=== PATIENT | female | born 1945 | race Caucasian/White ===

== ENCOUNTER 2019-08-07 06:00 | Outpatient (RCR) | payer MEDICARE, OTHER, SELFPAY | END 2019-08-25 23:59 | disposition home or self-care (01) | LOC: TOT 06:00 | PROVIDERS: Referring Provider Nurse Practitioner Family; Visit Provider Nurse Practitioner Family | DX: M79.641 Pain in right hand (principal); I10 Essential (primary) hypertension; E55.9 Vitamin D deficiency, unspecified; E78.5 Hyperlipidemia, unspecified; Z12.31 Encounter for screening mammogram for malignant neoplasm of breast; M81.0 Age-related osteoporosis without current pathological fracture; Z23 Encounter for immunization; F41.9 Anxiety disorder, unspecified; Z78.9 Other specified health status; M54.5 Low back pain | CPT/HCPCS: 80053; 80061; 82306; 85025; 97110; 97166; 97530 ==

== ENCOUNTER 2019-08-26 06:00 | Outpatient (RCR) | payer MEDICARE, OTHER, SELFPAY | END 2019-09-25 23:59 | disposition home or self-care (01) | LOC: TOT 06:00 | PROVIDERS: Referring Provider Nurse Practitioner Family; Visit Provider Nurse Practitioner Family | DX: M79.641 Pain in right hand (principal) | CPT/HCPCS: 97112; 97140; 97530 ==

== ENCOUNTER → 2020-02-28 09:02 | Outpatient (BNVA) | payer MEDICARE, OTHER, SELFPAY | PROVIDERS: Visit Provider Family Medicine | DX: I10 Essential (primary) hypertension (principal); E55.9 Vitamin D deficiency, unspecified | CPT/HCPCS: 80053; 80061; 82306; 84443; 85025 ==

== ENCOUNTER → 2021-01-19 11:51 | Outpatient (BNVA) | payer MEDICARE, OTHER, SELFPAY | PROVIDERS: Visit Provider Family Medicine | DX: E55.9 Vitamin D deficiency, unspecified (principal); E78.5 Hyperlipidemia, unspecified; I10 Essential (primary) hypertension; M81.0 Age-related osteoporosis without current pathological fracture; L02.91 Cutaneous abscess, unspecified; F41.9 Anxiety disorder, unspecified; J44.9 Chronic obstructive pulmonary disease, unspecified; Z12.31 Encounter for screening mammogram for malignant neoplasm of breast | CPT/HCPCS: 80053; 80061; 82306; 84443; 85025 ==

== ENCOUNTER 2021-07-05 09:39 | Inpatient (IN) | payer MEDICARE, OTHER, SELFPAY ==
[2021-07-05] VITALS (13 sets, daily range): BP systolic 128–171; BP diastolic 68–90; PULSE 83–113; RESP 16–32; TEMP 36.5–37.2; O2SAT 83–95; BMI 24.2
--- NOTE | 2021-07-05 09:45 | W.ED.SOB ---
HPI - SOB/Dyspnea General: Chief Complaint: Shortness of Breath/Dyspnea Stated Complaint: DIFF BREATHING Time Seen by Provider: 07/05/21 09:44 History of Present Illness: HPI Narrative: Ms. Shultz is a 76-year-old lady with history of COPD not on baseline oxygen who presents to the emergency department due to shortness of breath and generalized symptoms. Symptoms were gradual in onset approximately 1 week ago, she first noted sore throat which resolved however she subsequently developed generalized aches, congestion, chills and sweats, shortness of breath, and cough. She has associated chest discomfort which she attributes to coughing. This is tightness across her chest. Overall the course of symptoms has been worsening. Intensity is moderate to severe. No other specific changes in health, exacerbating, or alleviating factors identified. MD elicited complaint: shortness of breath Pertinent past history: COPD Onset (ago): week(s) Timing: progressively worsening Severity: severe Exacerbating factors: exertion and coughing Relieving factors: nothing Known history of: COPD Associated symptoms: Reports chest pain, cough and fever(s) Treatment prior to arrival: oxygen Review of Systems General: Reports: 10 or more systems reviewed and unremarkable except in HPI and below Const: Reports: fever(s) Card: Reports: chest pain PFSH ED PFSH: Medical History (Updated 07/08/21 @ 00:01 by ) Anxiety Hyperlipidemia Hypertension Osteoporosis Statin intolerance Vitamin D deficiency Surgical History History of bilateral cataract extraction (~2013) History of total left hip replacement (~2011) Family History Brother Heart disease Mother Heart disease Social History Smoking and tobacco status: current every day smoker cigarettes Packs smoked per day: 1 Years cigarettes smoked: 59 Alcohol intake: current Alcohol intake frequency: 0-2 Drinks per Day Caregiver/support person: Yes Lives independently: Yes Household members: friend(s) Housing: House Marital status: / Current occupational status: retired Current gender identity: Female Physical Exam Const: COMMON NORMALS: alert GENERAL APPEARANCE: cooperative, well developed and ill appearing (midlyl) HENMT: COMMON NORMALS: normocephalic and atraumatic HEAD & SCALP: normocephalic and atraumatic MOUTH: moist mucous membranes not abnormal THROAT: posterior oropharynx normal Eye: COMMON NORMALS: conjunctivae normal CONJUNCTIVA: Yes conjunctivae normal SCLERA: sclerae normal Neck/C-Spine: COMMON NORMALS: supple GENERAL: Yes trachea midline Resp: EFFORT & INSPECTION: Yes tachypneic and Yes uses accessory muscles AUSCULTATION: diminished lung sounds Cardio: COMMON NORMALS: regular rate and regular rhythm RATE: regular rate RHYTHM: regular rhythm GI: COMMON NORMALS: Soft to palpation PALPATION: Yes Soft to palpation and No Tenderness to palpation present (GI) PERCUSSION: normal to percussion Extremity: GENERAL: Yes normal exam except as noted and No edema Neuro: COMMON NORMALS: moves all extremities SENSORIUM/ORIENTATION: Yes alert and No Orientation impaired Psych: COMMON NORMALS: mental status grossly normal and Normal thought process present THOUGHT PROCESS: Normal thought process present Course ED course: - Patient was seen and evaluated by me at bedside - Patient placed on cardiac monitors, IV access obtained - Initial evaluation notable for increased work of breathing and new oxygen requirement -Symptom treatment ordered - Labs notable for Leukocytosis. Metabolic panel with evidence of mild dehydration. CRP elevated. - Imaging notable for right lower lobe pneumonia. COPD. - Upon serial reexamination after treatment the patient was mildly improved though still with increased work of breathing and supplemental oxygen requirement. - Based on patient history, evaluation, labs, and imaging as interpreted the most likely cause of the patient's condition is pneumonia with COPD exacerbation - The results of ED evaluation were discussed with the patient including plan for admission due to requirement for level of care not available if discharged to prevent significant worsening/deterioration. - Hospitalist service contacted and agreed to admit the patient. - Patient was admitted without further deterioration or significant events. Note: Click bubbles or prepopulated maynard in note writing are used for assistance with data collection and billing and are inherently more limited than narrative and other text portions of this note. Please use narrative for additional clinical history and defer to narrative/free test for any case of contradictory information. If information appears in only free text or click bubble it should be considered present or absent as reported. Please contact note freelance copywriter for clarifications of clinical information or contradictory information. MDM is a brief summary, contradictory or erroneous seeming information should be clarified and full note should be referred to in cases of contradiction or lack of clarity. Vital Signs: Vital signs: Vital Signs Temperature 97.6 F 07/07/21 14:53 Pulse Rate 68 07/07/21 14:53 Respiratory Rate 18 07/07/21 14:53 Blood Pressure 152/78 07/07/21 14:53 Pulse Oximetry 92 07/07/21 14:53 MDM - SOB/Dyspnea MDM Narrative: Medical decision making narrative: Ms. Shultz is a 76-year-old lady with history of COPD presenting with increased shortness of breath. Most likely has pneumonia with acute exacerbation of COPD and pneumonia with new oxygen requirement. Admitted for definitive management as patient was hypoxemic with respiratory distress on room air with increased work of breathing despite supplemental oxygen. Medical Records: Attestation: I reviewed the patient's medical records. Lab Data: Attestation: I reviewed the patient's lab results. Labs: Lab Results 07/05/21 07/05/21 07/05/21 10:18 10:30 10:30 WBC 11.3 10^3/uL H 10 ^3/uL (4.0-10.0) RBC 4.20 10^6/uL 10^6 /uL (4.1-5.3) Hgb 13.8 g/dL g/dL (11.5-15.3) Hct 41.0 % % (37.0-47.0) MCV 97.6 fl fl (81-99) MCH 32.9 pg pg (28.0-34.0) MCHC 33.7 g/dL g/dL (30.0-36.0) RDW 12.2 % % (12.1-15.1) Plt Count 304 10^3/cmm 10^3 /cmm (130-400) MPV 10.0 fL fL (7.4-10.4) Neut % (Auto) 71.4 % % Lymph % (Auto) 11.7 % % [place] % (Auto) 14.7 % % Eos % (Auto) 0.3 % % Baso % (Auto) 0.9 % % Neut # (Auto) 8.10 10^3/uL H 10 ^3/uL (1.8-7.7) Lymph # (Auto) 1.3 10^3/uL 10^3/ uL (0.8-4.8) [place] # (Auto) 1.7 10^3/uL H 10^ 3/uL (0.2-0.9) Eos # (Auto) 0.0 10^3/uL 10^3/ uL (0.0-0.8) Baso # (Auto) 0.1 10^3/uL 10^3/ uL (0.0-0.1) Nucleated RBC % (a uto) 0 % % Nucleated RBCs # 0.0 /100WBC /100W BC Specimen Type Arterial Sample Site Brachial, right ABG pH 7.45 (7.35-7.45) ABG pCO2 43.2 mmHg mmHg (35-45) ABG pO2 65.1 mmHg L mmHg (80.0-100.0) ABG HCO3 29.8 mmol/L H mmo l/L (22-26) ABG Base Excess 5.1 mmol/L H mmol /L (-2.0-2.0) Sebastian Test N/a Hematocrit 42.4 % % (37-47) O2 Delivery Device Nc O2 Liters/Min 4.0 % % FiO2 36.0 % % Supervisor In Circuit Testing ID Amh Sodium 135 mmol/L L mmol /L (136-145) Potassium 3.6 mmol/L mmol/L (3.5-5.1) Chloride 94 mmol/L L mmol/ L (98-107) Carbon Dioxide 24 mmol/L mmol/L (22-29) Anion Gap 20.6 H (5-19) BUN 7 mg/dL L mg/dL (8-23) Creatinine 0.4 mg/dL L mg/dL (0.5-0.9) GFR Calculation Not Reportable Glucose 105 mg/dL mg/dL (65-115) Calculated Osmolal ity 278 mOsm/kg L mOs m/kg (285-295) Calcium 9.6 mg/dL mg/dL (8.5-10.5) Total Bilirubin 0.4 mg/dL mg/dL (0.15-1.2) AST 17 U/L U/L (0-32) ALT 14 U/L U/L (0-33) Alkaline Phosphata se 92 IU/L IU/L (35-105) Troponin T Baselin e Troponin T 120 Min [place] Troponin T Troponin T Hi Sens 6Hr Troponin T Hi Sens 6Hr [place] C-Reactive Protein 338.2 mg/L H mg/L (0.0-4.9) NT-Pro-B Natriuret Pep 546 pg/mL H pg/mL (0-450) Total Protein 7.0 g/dL g/dL (6.6-8.7) Albumin 3.7 g/dL g/dL (3.5-5.2) Globulin 3.3 g/dL g/dL (1.3-4.6) Procalcitonin 0.10 ng/mL ng/mL (0-0.5) Coronavirus 229E ( PCR) SARS-CoV-2 (PCR) 07/05/21 07/05/21 07/05/21 10:30 10:30 13:00 WBC RBC Hgb Hct MCV MCH MCHC RDW Plt Count MPV Neut % (Auto) Lymph % (Auto) [place] % (Auto) Eos % (Auto) Baso % (Auto) Neut # (Auto) Lymph # (Auto) [place] # (Auto) Eos # (Auto) Baso # (Auto) Nucleated RBC % (a uto) Nucleated RBCs # Specimen Type Sample Site ABG pH ABG pCO2 ABG pO2 ABG HCO3 ABG Base Excess Sebastian Test Hematocrit O2 Delivery Device O2 Liters/Min FiO2 Supervisor In Circuit Testing ID Sodium Potassium Chloride Carbon Dioxide Anion Gap BUN Creatinine GFR Calculation Glucose Calculated Osmolal ity Calcium Total Bilirubin AST ALT Alkaline Phosphata se Troponin T Baselin e 11 ng/L H ng/L (0-10) Troponin T 120 Min [place] 10.94 ng/L H ng/L (0-10) Delta Troponin T -0.06 ABS# L ABS# (0-10) Troponin T Hi Sens 6Hr Troponin T Hi Sens 6Hr Delta C-Reactive Protein NT-Pro-B Natriuret Pep Total Protein Albumin Globulin Procalcitonin Coronavirus 229E ( PCR) Not detected (NOT DETECT) SARS-CoV-2 (PCR) Not detected (NOT DETECT) 07/05/21 07/06/21 07/06/21 17:00 04:00 04:00 WBC 11.4 10^3/uL H 10 ^3/uL (4.0-10.0) RBC 3.78 10^6/uL L 10 ^6/uL (4.1-5.3) Hgb 12.3 g/dL g/dL (11.5-15.3) Hct 37.1 % % (37.0-47.0) MCV 98.1 fl fl (81-99) MCH 32.5 pg pg (28.0-34.0) MCHC 33.2 g/dL g/dL (30.0-36.0) RDW 12.2 % % (12.1-15.1) Plt Count 288 10^3/cmm 10^3 /cmm (130-400) MPV 10.5 fL H fL (7.4-10.4) Neut % (Auto) 82.9 % % Lymph % (Auto) 7.4 % % [place] % (Auto) 5.9 % % Eos % (Auto) 0.0 % % Baso % (Auto) 0.6 % % Neut # (Auto) 9.41 10^3/uL H 10 ^3/uL (1.8-7.7) Lymph # (Auto) 0.8 10^3/uL 10^3/ uL (0.8-4.8) [place] # (Auto) 0.7 10^3/uL 10^3/ uL (0.2-0.9) Eos # (Auto) 0.0 10^3/uL 10^3/ uL (0.0-0.8) Baso # (Auto) 0.1 10^3/uL 10^3/ uL (0.0-0.1) Nucleated RBC % (a uto) 0 % % Nucleated RBCs # 0.0 /100WBC /100W BC Specimen Type Sample Site ABG pH ABG pCO2 ABG pO2 ABG HCO3 ABG Base Excess Sebastian Test Hematocrit O2 Delivery Device O2 Liters/Min FiO2 Supervisor In Circuit Testing ID Sodium 138 mmol/L mmol/L (136-145) Potassium 3.4 mmol/L L mmol /L (3.5-5.1) Chloride 101 mmol/L mmol/L (98-107) Carbon Dioxide 25 mmol/L mmol/L (22-29) Anion Gap 15.4 (5-19) BUN 6 mg/dL L mg/dL (8-23) Creatinine 0.3 mg/dL L mg/dL (0.5-0.9) GFR Calculation Not Reportable Glucose 174 mg/dL H mg/dL (65-115) Calculated Osmolal ity 288 mOsm/kg mOsm/ kg (285-295) Calcium 9.3 mg/dL mg/dL (8.5-10.5) Total Bilirubin AST ALT Alkaline Phosphata se Troponin T Baselin e Troponin T 120 Min [place] Troponin T Troponin T Hi Sens 6Hr 10.07 ng/L H ng/L (0-10) Troponin T Hi Sens 6Hr [place] -0.93 ng/L L ng/L (0-12) C-Reactive Protein NT-Pro-B Natriuret Pep Total Protein Albumin Globulin Procalcitonin Coronavirus 229E ( PCR) SARS-CoV-2 (PCR) EKG Data^: EKG 1: Attestation: I personally reviewed and interpreted this EKG as follows: EKG Interpretation Date: 07/05/21 EKG interpretation time: 10:20 Interpretation: Twelve-lead EKG shows a regular rhythm at a rate of 98. [place] interval 132, QRS duration 130, QTc 419. Normal axis. Interpretation: Sinus rhythm. Right bundle branch block. EKG 2: Attestation: I personally reviewed and interpreted this EKG as follows: EKG Interpretation Date: 07/05/21 EKG interpretation time: 14:15 Interpretation: Twelve-lead EKG shows a regular rhythm at a rate of 95. NJ interval 135, QRS duration 140, QTc 427. Normal axis. Interpretation: Sinus rhythm. Right bundle branch block. Discharge Plan Discharge Patient Disposition: Placed in Observation Admit Provider: Cordell Patterson Clinical Impression: Acute exacerbation of chronic obstructive airways disease, Hypoxemia, Pneumonia Discharge Diet: Cardiac Discharge Activity: Resume usual activity Coding Level of Care Code ED Site Foreman for Chg Fwd Exam Comprehensive
--- NOTE | 2021-07-05 09:47 | PC.NURSE ---
PT PLACED ON 4 L VIA NC SPO2 IS 92%.
--- NOTE | 2021-07-05 09:55 | ECG_ITS ---
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 Measurements Intervals [place] Rate: 98 P: 68 [place]: 132 QRS: 85 QRSD: 130 T: 42 QT: 364 QTc: 465 Interpretive Statements SINUS RHYTHM RIGHT BUNDLE BRANCH BLOCK [120+ ms QRS DURATION, UPRIGHT V1, 40+ ms S IN I/aVL/V4/V5/V6] No previous ECG available for comparison Electronically Signed On 07-07-2021 5:08:07 PLANNING COORDINATOR by Mirtha Johnson M.D. [id number]
--- NOTE | 2021-07-05 09:55 | XRR_ITS ---
PROCEDURE INFORMATION: Exam: XR Chest Exam date and time: 07/05/2021 9:55 AM Age: 76 years old Clinical indication: Cough and shortness of breath; Patient HX: Cough and SOB TECHNIQUE: Imaging protocol: XR of the chest. Views: 1 view. COMPARISON: No relevant prior studies available. FINDINGS: Lungs: The lungs are somewhat hyperinflated with increased interstitial markings, likely representing COPD. There is a patchy airspace opacity in the right lung base, concerning for pneumonia. Pleural spaces: Unremarkable. No pleural effusion. No pneumothorax. Heart/Mediastinum: Unremarkable. No cardiomegaly. Bones/joints: Degenerative changes of the spine and shoulder joints noted. XR/XR chest 1V portable [id number] IMPRESSION: 1. Imaging findings of right lower lobe pneumonia. 2. COPD changes.
[2021-07-05] MEDS: ipratropium-albuterol 3 mL Neb INHALATION ×2 (10:10→21:15)
[2021-07-05] MEDS: sodium chloride 0.9% 500 ML IV (10:22)
[2021-07-05 10:29] LABS: ABG PCO2 43.2 mmHg (35-45); ABG PH Result 7.45 (7.35-7.45); Arterial Blood Gas Hematocrit 42.4 % (37-47); Base Excess ABG 5.1 mmol/L (-2.0-2.0); Blood Gas Operator Identificat AMH; Blood Gas Sample Site Brachial, right; Blood Gas Sample Type Arterial; HCO3 ABG 29.8 mmol/L (22-26); Oxygen Device NC; PO2 ABG 65.1 mmHg (80.0-100.0)
[2021-07-05 10:50] LABS: Basophils # 0.1 10^3/uL (0.0-0.1); Basophils % 0.9 %; Eosinophils % 0.3 %; Hemoglobin 13.8 g/dL (11.5-15.3); Lymphocytes # 1.3 10^3/uL (0.8-4.8); Lymphocytes % 11.7 %; Mean Corpuscular HGB Conc 33.7 g/dL (30.0-36.0); Mean Corpuscular Hemoglobin 32.9 pg (28.0-34.0); Mean Corpuscular Volume 97.6 fl (81-99); Monocytes # 1.7 10^3/uL (0.2-0.9); Monocytes % 14.7 %; Neutrophils % 71.4 %; Nucleated Red Blood Cells % 0 %; Platelet Count 304 10^3/cmm (130-400); Red Cell Distribution Width 12.2 % (12.1-15.1); White Blood Count 11.3 10^3/uL (4.0-10.0)
[2021-07-05 11:06] LABS: Troponin(5th) Baseline 11 ng/L (0-10)
[2021-07-05 11:11] LABS: NT Pro B Type Natriuretic Pept 546 pg/mL (0-450)
[2021-07-05 11:22] LABS: Alanine Aminotransferase 14 U/L (0-33); Albumin Level 3.7 g/dL (3.5-5.2); Alkaline Phosphatase 92 IU/L (35-105); Anion Gap 20.6 (5-19); Aspartate Amino Transferase 17 U/L (0-32); Blood Urea Nitrogen 7 mg/dL (8-23); Calcium 9.6 mg/dL (8.5-10.5); Carbon Dioxide 24 mmol/L (22-29); Chloride 94 mmol/L (98-107); Globulin 3.3 g/dL (1.3-4.6); Glucose 105 mg/dL (65-115); Osmolality Calculated 278 mOsm/kg (285-295); Potassium 3.6 mmol/L (3.5-5.1); Sodium 135 mmol/L (136-145); Total Bilirubin 0.4 mg/dL (0.15-1.2)
[2021-07-05 11:34] LABS: C Reactive Protein 338.2 mg/L (0.0-4.9)
--- NOTE | 2021-07-05 11:55 | ECG_ITS ---
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 Measurements Intervals [place] Rate: 95 P: 56 [place]: 135 QRS: 83 QRSD: 140 T: 43 QT: 374 QTc: 472 Interpretive Statements SINUS RHYTHM WITH SINUS ARRHYTHMIA RIGHT BUNDLE BRANCH BLOCK [120+ ms QRS DURATION, UPRIGHT V1, 40+ ms S IN I/aVL/V4/V5/V6] Compared to ECG 07/05/2021 10:16:18 No significant changes Electronically Signed On 07-07-2021 5:21:00 LANDING MAN by Mirtha Johnson M.D. [id number]
[2021-07-05 12:35] LABS: Adenovirus Not Detected (NOT DETECT); Chlamydia Pneumoniae Not Detected (NOT DETECT); Coronavirus 229E,HKU1,NL63,OC4 Not Detected (NOT DETECT); Human Metapneumovirus Not Detected (NOT DETECT); Human Rhinovirus/Enterovirus Not Detected (NOT DETECT); Influenza A Not Detected (NOT DETECT); Influenza A H1 Not Detected (NOT DETECT); Influenza A H1-2009 Not Detected (NOT DETECT); Influenza A H3 Not Detected (NOT DETECT); Influenza B Not Detected (NOT DETECT); Mycoplasma Pneumoniae Not Detected (NOT DETECT); Parainfluenza Virus Type 1 Not Detected (NOT DETECT); Parainfluenza Virus Type 2 Not Detected (NOT DETECT); Parainfluenza Virus Type 3 Not Detected (NOT DETECT); Parainfluenza Virus Type 4 Not Detected (NOT DETECT); Respiratory Syncytial Virus A Not Detected (NOT DETECT); Respiratory Syncytial Virus B Not Detected (NOT DETECT); SARS-COV-2 Not Detected (NOT DETECT)
[2021-07-05 13:31] LABS: Troponin 5 2HR 10.94 ng/L (0-10)
[2021-07-05 13:32] LABS: Troponin 5 2HR Delta -0.06 ABS# (0-10)
[2021-07-05] MEDS: cefTRIAXone 1,000 MG in sodium chloride 0.9% (plus) 50 ML 100 MG IV (13:48)
[2021-07-05] MEDS: doxycycline 100 MG in sodium chloride 0.9% (plus) 100 ML IV (13:49)
--- NOTE | 2021-07-05 15:02 | P.HP_ITS ---
Providers/Chief Complaint Chief Complaint: DIFF BREATHING History of Present Illness Addie Shultz is a 76 year old female with past medical history of hypertension , COPD not on home oxygen , came in with chief complaint of worsening shortness of breath, cough with productive yellow sputum, generalized body pain, fatigue, poor appetite, feeling of hot and cold sensations, going on for last 1 week and has progressively worsened. She denies any fever, chest pain, palpitation , runny nose , facial pain , headache ,nausea, vomiting, abdominal pain, urinary complaints. Patient is vaccinated and boosted for Covid as well as influenza. Upon arrival in the ER she was worked up for above mentioned complaint: Pertinent imaging studies: XR chest: Suggestive of right lower lobe infiltrates EKG: Sinus rhythm with right bundle branch block. Pertinent labs: WBC 11.3, H&H:13.8/41, platelet count:304, serum sodium 135 serum potassium 3.6, BUN serum creatinine:7/0.4, Troponin trend without significant delta. proBNP is 546, CRP 338.2 Covid -19 PCR negative In the ER: Patient received nebs as well as Solu-Medrol IV, she was also given 1 dose of antibiotics. Currently she is requiring 4 Ls of oxygen. Review of Systems Const: Denies: fever(s) Card: Denies: palpitations, edema or swelling of feet/ankles Resp: Denies: pain on inspiration GI: Denies: abdominal pain, nausea, vomiting, diarrhea or constipation : Denies: flank pain Musc: Denies: extremity pain or extremity swelling Neuro: Denies: headache(s), difficulty walking or confusion Medications/Allergies Home Medications Medication Instructions Recorded Confirmed Last Taken Type aspirin 81 mg tablet,delayed 81 mg PO DAILY 08/01/19 07/05/21 06/28/21 History release albuterol sulfate 90 mcg/actuation 2 puff INHALATION Q6H PRN #18 gm 01/19/21 07/05/21 Unknown Rx aerosol inhaler atorvastatin 10 mg tablet 10 mg PO DAILY #90 tab 01/19/21 07/05/21 06/28/21 Rx cholecalciferol (vitamin D3) 125 5,000 unit PO DAILY #30 cap 01/19/21 07/05/21 06/28/21 Rx mcg (5,000 unit) capsule citalopram 20 mg tablet 20 mg PO DAILY #90 tab 01/19/21 07/05/21 06/28/21 Rx cyclobenzaprine 10 mg tablet 10 mg PO BID PRN #180 tab 01/19/21 07/05/21 Unknown Rx fluticasone fur. 100 mcg-umeclid See Rx Instructions .ROUTE 06/10/21 07/05/21 Unknown Rx 62.5 mcg-vilant 25 mcg .COMPLEX #60 ea inhalat.powder lisinopril 20 See Rx Instructions .ROUTE 06/10/21 07/05/21 06/28/21 Rx mg-hydrochlorothiazide 12.5 mg .COMPLEX #30 tab tablet amlodipine 5 mg PO BEDTIME 07/05/21 07/05/21 06/28/21 History Allergies Allergy/AdvReac Type Severity Reaction Status Date / Time codeine Allergy Mild ADR-Nausea Verified 01/19/21 10:42 Sulfa (Sulfonamide Allergy Mild ADR-Nausea Verified 01/19/21 10:42 Antibiotics) PFSH Acute PFSH: Medical History (Updated 07/05/21 @ 13:25 by Darryl Grace MD) Anxiety Hyperlipidemia Hypertension Osteoporosis Statin intolerance Vitamin D deficiency Surgical History History of bilateral cataract extraction (~2013) History of total left hip replacement (~2011) Family History Brother Heart disease Mother Heart disease Social History Smoking and tobacco status: current every day smoker cigarettes Packs smoked per day: 1 Years cigarettes smoked: 59 Alcohol intake: current Alcohol intake frequency: 0-2 Drinks per Day Caregiver/support person: Yes Lives independently: Yes Household members: friend(s) Housing: House Marital status: / Current occupational status: retired Current gender identity: Female Vitals/I&O/Wt Last Vital Signs Temp 97.7 F 07/05/21 14:00 Pulse 107 H 07/05/21 13:36 Resp 28 H 07/05/21 13:36 BP 133/68 07/05/21 13:36 Pulse Ox 93 07/05/21 13:36 07/05/21 07/05/21 07/05/21 06:59 14:59 22:59 Intake Total 500 / 500 Balance 500 / 500 Weight last 48 hrs Weight 68.039 kg Physical Exam Const: COMMON NORMALS: patient oriented x3 HENMT: COMMON NORMALS: normocephalic and atraumatic HEAD & SCALP: normocephalic and atraumatic Resp: OTHER: B/l Dimished Air entry, Minimal wheezing Cardio: COMMON NORMALS: regular rate, regular rhythm, S1 normal heart sound present, S2 normal heart sound present, No gallops present (Cardio), No murmurs present (Cardio), No rub (Cardio) and Peripheral pulses 2+ throughout RATE: regular rate RHYTHM: regular rhythm HEART SOUNDS: S1 normal heart sound present and S2 normal heart sound present PERIPHERAL PULSES: Peripheral pulses 2+ throughout GI: COMMON NORMALS: Normal to inspection, nondistended, normoactive bowel sounds present, Soft to palpation, non-tender, No hepatosplenomegaly present and no masses AUSCULTATION: Yes normoactive bowel sounds PALPATION: Yes Soft to palpation and Yes No hepatosplenomegaly present RECTAL EXAM: deferred Extremity: COMMON NORMALS: no clubbing, cyanosis or edema and no pedal edema Neuro: COMMON NORMALS: patient oriented x3 Data : 07/05/21 10:30 07/05/21 10:30 Micro: Microbiology 07/05/21 14:00 Blood Culture - Preliminary Blood SPECIMEN COLLECTED 07/05/21 10:30 Blood Culture - Preliminary Blood SPECIMEN COLLECTED A&P Assessment and plan (1) Acute exacerbation of chronic obstructive airways disease: Status: Acute (2) Pneumonia: Status: Acute (3) Hypoxemia: Status: Acute (4) Hypertension: Status: Acute Additional A&P Information 76 year old female with past medical history of hypertension , COPD not on home oxygen , came in with chief complaint of worsening shortness of breath, cough with productive yellow sputum, generalized body pain, fatigue, poor appetite, feeling of hot and cold sensations, going on for last 1 week and has progressively worsened. #COPD exacerbation: Likely secondary to pneumonia Duo nebs Solu-Medrol 60 twice daily Supplemental oxygen as needed Continue ceftriaxone and azithromycin Continue Trelegy inhaler Mucinex Incentive spirometer, flutter valve #Community-acquired pneumonia. Sputum culture Monitor x-ray chest Urine Legionella antigen Bacterial antigen panel Antibiotic as above #Hypertension: Continue home medications Code Status :Full Code DVT PPX: Lovenox 40 mg sc daily Attestations Medical Necessity Statement*: Patient is to be in hospital for management of COPD as well pneumonia. Time Spent in Patient Care: Greater than 35 minutes (>than 50% of time spent in counselling and/or direct pt care on unit) . Coding Level of Care Code Acute Fermentation Engineer for Chg Fwd Exam Detailed Diagnoses Acute exacerbation of chronic obstructive airways disease J44.1 Pneumonia J18.9 Hypoxemia R09.02 Hypertension I10
[2021-07-05] MEDS: enoxaparin 40 mg/0.4 mL Syringe SUBCUT (15:49)
[2021-07-05] MEDS: dextrose 5%-sod chloride 0.9% 1,000 ML 50 ML IV (15:49)
[2021-07-05] MEDS: azithromycin 500 MG in sodium chloride 0.9% 250 ML 250 MG IV (15:49)
[2021-07-05 17:39] LABS: Troponin 5 6HR 10.07 ng/L (0-10)
[2021-07-05 17:40] LABS: Troponin 5 6HR Delta -0.93 ng/L (0-12)
[2021-07-05] MEDS: guaiFENesin 600 mg Tablet 1200 MG PO (20:01)
[2021-07-05] MEDS: amlodipine 5 mg Tablet PO (20:01)
[2021-07-06] VITALS (17 sets, daily range): BP systolic 112–135; BP diastolic 64–74; PULSE 70–96; RESP 16–18; TEMP 36.4–36.8; O2SAT 92–96
[2021-07-06] MEDS: ipratropium-albuterol 3 mL Neb INHALATION ×4 (02:49→21:50)
[2021-07-06 04:50] LABS: Basophils # 0.1 10^3/uL (0.0-0.1); Basophils % 0.6 %; Hematocrit 37.1 % (37.0-47.0); Hemoglobin 12.3 g/dL (11.5-15.3); Lymphocytes # 0.8 10^3/uL (0.8-4.8); Lymphocytes % 7.4 %; Mean Corpuscular HGB Conc 33.2 g/dL (30.0-36.0); Mean Corpuscular Hemoglobin 32.5 pg (28.0-34.0); Mean Corpuscular Volume 98.1 fl (81-99); Mean Platelet Volume 10.5 fL (7.4-10.4); Monocytes # 0.7 10^3/uL (0.2-0.9); Monocytes % 5.9 %; Neutrophils # 9.41 10^3/uL (1.8-7.7); Neutrophils % 82.9 %; Nucleated Red Blood Cells % 0 %; Platelet Count 288 10^3/cmm (130-400); Red Blood Count 3.78 10^6/uL (4.1-5.3); Red Cell Distribution Width 12.2 % (12.1-15.1); White Blood Count 11.4 10^3/uL (4.0-10.0)
[2021-07-06 05:10] LABS: Anion Gap 15.4 (5-19); Blood Urea Nitrogen 6 mg/dL (8-23); Calcium 9.3 mg/dL (8.5-10.5); Carbon Dioxide 25 mmol/L (22-29); Chloride 101 mmol/L (98-107); Glucose 174 mg/dL (65-115); Osmolality Calculated 288 mOsm/kg (285-295); Potassium 3.4 mmol/L (3.5-5.1); Sodium 138 mmol/L (136-145)
[2021-07-06] MEDS: atorvastatin 40 mg Tablet 10 MG PO (09:23)
[2021-07-06] MEDS: cholecalciferol (vitamin D3) 5,000 unit Tablet 5000 UNIT PO (09:25)
[2021-07-06] MEDS: lisinopril 20 mg Tablet PO (09:25)
[2021-07-06] MEDS: aspirin 81 mg EC Tablet PO (09:25)
[2021-07-06] MEDS: citalopram 20 mg Tablet PO (09:25)
[2021-07-06] MEDS: guaiFENesin 600 mg Tablet 1200 MG PO ×2 (09:33→20:59)
[2021-07-06] MEDS: cefTRIAXone 1,000 MG in sodium chloride 0.9% (plus) 50 ML 100 MG IV (13:42)
--- NOTE | 2021-07-06 13:45 | PM.PN ---
Subjective Subjective: Interval history: Patient was seen this morning, she tells me that she is feeling a lot better, she continues to have wheezing, no lightheadedness, dizziness, still having a cough, reports that she quit smoking a few years ago, but picked up the habit again Vitals/I&O/Wt Last Vital Signs Temp 97.8 F 07/06/21 11:34 Pulse 95 07/06/21 11:34 Resp 18 07/06/21 11:34 BP 112/65 07/06/21 11:34 Pulse Ox 92 07/06/21 11:34 07/05/21 07/06/21 07/06/21 22:59 06:59 14:59 Intake Total 520 / 1020 120 / 120 Output Total 480 / 480 460 / 940 Balance 40 / 540 -460 / 80 120 / 120 Weight last 48 hrs Weight 68.039 kg Physical Exam Const: COMMON NORMALS: no acute distress and patient oriented x3 Resp: COMMON NORMALS: normal respiratory effort, No retractions and No use of accessory muscles AUSCULTATION: wheezes Cardio: COMMON NORMALS: regular rate, regular rhythm, S1 normal heart sound present and S2 normal heart sound present RATE: regular rate RHYTHM: regular rhythm HEART SOUNDS: S1 normal heart sound present and S2 normal heart sound present GI: COMMON NORMALS: Normal to inspection, nondistended, normoactive bowel sounds present, Soft to palpation and non-tender PALPATION: Yes Soft to palpation Extremity: COMMON NORMALS: no pedal edema Neuro: COMMON NORMALS: patient oriented x3 Psych: COMMON NORMALS: mental status grossly normal Data : 07/06/21 04:00 07/06/21 04:00 Micro: Microbiology 07/05/21 14:00 Blood Culture - Preliminary Blood SPECIMEN COLLECTED 07/05/21 10:30 Blood Culture - Preliminary Blood SPECIMEN COLLECTED A&P Assessment and plan (1) Acute exacerbation of chronic obstructive airways disease: Status: Acute (2) Pneumonia: Status: Acute (3) Hypoxemia: Status: Acute (4) Hypertension: Status: Acute Additional A&P Information 76 year old female with past medical history of hypertension , COPD not on home oxygen , came in with chief complaint of worsening shortness of breath, cough with productive yellow sputum, generalized body pain, fatigue, poor appetite, feeling of hot and cold sensations, going on for last 1 week and has progressively worsened. #COPD exacerbation: Likely secondary to pneumonia Duo nebs Solu-Medrol 60 twice daily Supplemental oxygen as needed Continue ceftriaxone and azithromycin Continue Trelegy inhaler Mucinex Incentive spirometer, flutter valve #Community-acquired pneumonia. 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
[2021-07-06] MEDS: enoxaparin 40 mg/0.4 mL Syringe SUBCUT (15:29)
[2021-07-06] MEDS: azithromycin 500 MG in sodium chloride 0.9% 250 ML 250 MG IV (15:30)
[2021-07-06] MEDS: amlodipine 5 mg Tablet PO (20:59)
[2021-07-07] VITALS (10 sets, daily range): BP systolic 127–152; BP diastolic 70–82; PULSE 68–95; RESP 16–18; TEMP 36.4–36.9; O2SAT 85–98
[2021-07-07] MEDS: ipratropium-albuterol 3 mL Neb INHALATION ×2 (02:38→09:42)
[2021-07-07 07:03] LABS: Basophils # 0.1 10^3/uL (0.0-0.1); Basophils % 0.6 %; Hematocrit 35.7 % (37.0-47.0); Hemoglobin 11.9 g/dL (11.5-15.3); Lymphocytes # 1.4 10^3/uL (0.8-4.8); Lymphocytes % 6.7 %; Mean Corpuscular HGB Conc 33.3 g/dL (30.0-36.0); Mean Corpuscular Hemoglobin 32.2 pg (28.0-34.0); Mean Corpuscular Volume 96.7 fl (81-99); Mean Platelet Volume 10.3 fL (7.4-10.4); Monocytes # 1.3 10^3/uL (0.2-0.9); Monocytes % 6.2 %; Neutrophils # 17.22 10^3/uL (1.8-7.7); Neutrophils % 81.6 %; Nucleated Red Blood Cells % 0 %; Platelet Count 322 10^3/cmm (130-400); Red Blood Count 3.69 10^6/uL (4.1-5.3); Red Cell Distribution Width 12.4 % (12.1-15.1); White Blood Count 21.1 10^3/uL (4.0-10.0)
[2021-07-07 07:16] LABS: Anion Gap 16.6 (5-19); Blood Urea Nitrogen 8 mg/dL (8-23); Calcium 9.3 mg/dL (8.5-10.5); Carbon Dioxide 24 mmol/L (22-29); Chloride 103 mmol/L (98-107); Glucose 125 mg/dL (65-115); Osmolality Calculated 290 mOsm/kg (285-295); Potassium 3.6 mmol/L (3.5-5.1); Sodium 140 mmol/L (136-145)
[2021-07-07] MEDS: atorvastatin 40 mg Tablet 10 MG PO (08:02)
[2021-07-07] MEDS: citalopram 20 mg Tablet PO (08:02)
[2021-07-07] MEDS: cholecalciferol (vitamin D3) 5,000 unit Tablet 5000 UNIT PO (08:02)
[2021-07-07] MEDS: lisinopril 20 mg Tablet PO (08:02)
[2021-07-07] MEDS: guaiFENesin 600 mg Tablet 1200 MG PO (08:03)
[2021-07-07] MEDS: aspirin 81 mg EC Tablet PO (08:03)
--- NOTE | 2021-07-07 12:03 | PM.DCS ---
Discharge Providers Date of Admission: 07/06/21 14:05 Date of Discharge: July 07, 2021 Attending Provider at Admission: Cordell Patterson MD Attending Provider at Discharge: Lakhwinder Jha MD Diagnoses at Discharge Discharge Diagnosis (1) Acute exacerbation of chronic obstructive airways disease: Status: Acute (2) Pneumonia: Status: Acute (3) Hypoxemia: Status: Acute (4) Hypertension: Status: Acute Reason for Visit Reason for Visit: DIFF BREATHING Hospital Course Hospital Course This is a 76-year-old female with a past medical history of hypertension, COPD not on home oxygen, smoker, who presents [facility] for worsening shortness of breath Patient was admitted to [facility] for shortness of breath secondary to COPD exacerbation and community-acquired pneumonia, received oxygen therapy, broad-spectrum antibiotic therapy, prednisone therapy, inhaler therapy, clinically monitored. Patient clinically improved, symptomatology improved, requiring 3 L on discharge. Discharged on a prednisone burst, doxycycline, albuterol, trilogy home inhaler, with follow-up with primary care and pulmonary as outpatient. Patient was advised to quit smoking. Physical Exam Const: COMMON NORMALS: no acute distress and patient oriented x3 Resp: COMMON NORMALS: normal respiratory effort, No retractions, No use of accessory muscles and clear to auscultation bilaterally AUSCULTATION: clear to auscultation bilaterally Cardio: COMMON NORMALS: regular rate, regular rhythm, S1 normal heart sound present and S2 normal heart sound present RATE: regular rate RHYTHM: regular rhythm HEART SOUNDS: S1 normal heart sound present and S2 normal heart sound present GI: COMMON NORMALS: Normal to inspection, nondistended, normoactive bowel sounds present, Soft to palpation and non-tender PALPATION: Yes Soft to palpation Extremity: COMMON NORMALS: no pedal edema Neuro: COMMON NORMALS: patient oriented x3 Psych: COMMON NORMALS: mental status grossly normal Discharge Data Data Completed and Pending: Completed Studies During Hospitalization Category Date Time Status XR chest 1V joellen ble [id number] Urgent Exams 07/05/21 09:55 Completed Pending at discharge Category Date Time Status Basic Metabolic P jose AM LABS Lab 07/08/21 04:00 Ordered Blood Culture Sta t Lab 07/05/21 14:00 Results Complete Blood Co unt w/Auto AM LABS Lab 07/08/21 04:00 Ordered Labs from last 24 hours 07/07/21 07/07/21 06:01 06:01 WBC 21.1 H RBC 3.69 L Hgb 11.9 Hct 35.7 L MCV 96.7 MCH 32.2 MCHC 33.3 RDW 12.4 Plt Count 322 MPV 10.3 Neut % (Auto) 81.6 Lymph % (Auto) 6.7 [place] % (Auto) 6.2 Eos % (Auto) 0.0 Baso % (Auto) 0.6 Neut # (Auto) 17.22 H Lymph # (Auto) 1.4 [place] # (Auto) 1.3 H Eos # (Auto) 0.0 Baso # (Auto) 0.1 Nucleated RBC % (a uto) 0 Nucleated RBCs # 0.0 Sodium 140 Potassium 3.6 Chloride 103 Carbon Dioxide 24 Anion Gap 16.6 BUN 8 Creatinine 0.3 L GFR Calculation Not Reportable Glucose 125 H Calculated Osmolal ity 290 Calcium 9.3 Vitals: Last Vital Signs Temp 97.6 F 07/07/21 11:37 Pulse 68 07/07/21 11:37 Resp 18 07/07/21 11:37 BP 152/78 07/07/21 11:37 Pulse Ox 92 07/07/21 11:37 Discharge Plan Discharge Patient Disposition: Home Condition: Stable Prescriptions: New doxycycline hyclate 100 mg tablet 100 mg PO BID 5 Days Qty: 10 RF: 0 prednisone 20 mg tablet 20 mg PO BID 5 Days Qty: 10 RF: 0 Continued aspirin 81 mg tablet,delayed release (DR/EC) 81 mg PO DAILY RF: 0 cholecalciferol (vitamin D3) [Dialyvite Vitamin D] 125 mcg (5,000 unit) capsule 5,000 unit PO DAILY Qty: 30 RF: 4 citalopram 20 mg tablet 20 mg PO DAILY Qty: 90 RF: 2 cyclobenzaprine 10 mg tablet 10 mg PO BID PRN (Reason: muscle spasm) Qty: 180 RF: 2 atorvastatin [Lipitor] 10 mg tablet 10 mg PO DAILY Qty: 90 RF: 2 Trelegy Ellipta 100-62.5-25 mcg blister with device See Rx Instructions .ROUTE .COMPLEX Qty: 60 RF: 0 lisinopril-hydrochlorothiazide 20-12.5 mg tablet See Rx Instructions .ROUTE .COMPLEX Qty: 30 RF: 0 amlodipine 5 mg tablet 5 mg PO BEDTIME RF: 0 Changed albuterol sulfate [Ventolin HFA] 90 mcg/actuation HFA aerosol inhaler 1 puff INHALATION Q6H PRN (Reason: shortness of breath or wheezing) Qty: 18 RF: 0 Discharge Orders: Discharge Order (Routine); Ordered 07/07/21 Ordered By: Lakhwinder Jha Referrals: DatarRobbin MD [Physician] - 7-10 days Discharge Diet: Cardiac Discharge Activity: Resume usual activity Patient Instructions: Opioid Safety Activity Restrictions/Additional Instructions: - Stop smoking -Please use inhalers as prescribed -Please use doxycycline and prednisone as prescribed -Please use oxygen as prescribed, do not smoke around oxygen tank Discharge Attestations Time Spent in Discharge Care*: less than 30 min Quality Metrics Clinical Quality Measures During this hospital stay, did patient experience: None Coding Level of Care Code Acute g [facility] note Diagnoses Acute exacerbation of chronic obstructive airways disease J44.1 Pneumonia J18.9 Hypoxemia R09.02 Hypertension I10
--- NOTE | 2021-07-07 14:52 | PC.NURSE ---
Discussed discharge instructions and medications. Patient verbalized understanding. Patient wheeled out in wheel chair to private vehicle.
== END 2021-07-07 14:55 | disposition home or self-care (01) | DRG 194 ==
LOC: ER 13:25 → MEDSURG 15:36
PROVIDERS: Admitting Provider Internal Medicine; Emergency Provider Emergency Medicine; Visit Provider Family Medicine
DX: J18.9 Pneumonia, unspecified organism (principal); J44.1 Chronic obstructive pulmonary disease with (acute) exacerbation; I10 Essential (primary) hypertension; R09.02 Hypoxemia; Z99.81 Dependence on supplemental oxygen; F17.210 Nicotine dependence, cigarettes, uncomplicated; I45.10 Unspecified right bundle-branch block; Z79.82 Long term (current) use of aspirin; E86.0 Dehydration; E55.9 Vitamin D deficiency, unspecified; E78.5 Hyperlipidemia, unspecified; F41.9 Anxiety disorder, unspecified
CPT/HCPCS: 36415; 36600; 71045; 80048; 80053; 82803; 83880; 84145; 84484; 85025; 86140; 87040; 87635; 93005; 94640; 96365; 96366; 96367; 96372; 96375; 99285; G0378; J0456; J0696; J1650; J2930; J3490; J7040; J7050

== ENCOUNTER → 2021-09-11 12:13 | Outpatient (BNVA) | payer MEDICARE, OTHER, SELFPAY | PROVIDERS: PCP Family Medicine; Visit Provider Internal Medicine Pulmonary Disease | DX: J44.9 Chronic obstructive pulmonary disease, unspecified (principal) | CPT/HCPCS: 87635 ==

== ENCOUNTER → 2021-09-23 08:35 | Outpatient (BNVA) | payer MEDICARE, OTHER, SELFPAY | PROVIDERS: PCP Family Medicine; Visit Provider Internal Medicine Pulmonary Disease | DX: J44.9 Chronic obstructive pulmonary disease, unspecified; J18.9 Pneumonia, unspecified organism; E78.5 Hyperlipidemia, unspecified; I10 Essential (primary) hypertension; Z87.891 Personal history of nicotine dependence | CPT/HCPCS: 87635; 99214 ==

== ENCOUNTER 2021-09-30 07:55 | Outpatient (CLI) | payer MEDICARE, OTHER, SELFPAY ==
--- NOTE | 2021-09-30 13:46 | PFTS_ITS ---
Date of Study:09/30/21 Date of Dictation: MECHANICS: Forced vital capacity (FVC) is normal. Forced expiratory volume in one second (FEV1) is reduced. FEV1/FVC is normal. FLOW VOLUME LOOP: Reduced lateral lung volumes with scooping. LUNG VOLUMES: Total lung capacity (TLC) is normal. Residual volume (RV) is normal. DIFFUSING CAPACITY FOR CARBON MONOXIDE: Mild reduced. INTERPRETATION: Postbronchodilator spirometry is likely suggestive of mild airflow obstruction. The FEV1 FVC ratio is preserved. There is scooping of the flow volume loop suggestive of small airways disease. Lung volumes are normal. Gas exchange (DLCO) is mildly reduced. MTDD
== END 2021-09-30 07:56 | disposition home or self-care (01) ==
LOC: RT 07:57
PROVIDERS: PCP Family Medicine; Visit Provider Internal Medicine Pulmonary Disease
DX: J44.9 Chronic obstructive pulmonary disease, unspecified (principal)
CPT/HCPCS: 94060; 94726; 94729; J7611

== ENCOUNTER → 2021-11-06 08:53 | Outpatient (BNVA) | payer MEDICARE, OTHER, SELFPAY | PROVIDERS: PCP Family Medicine; Visit Provider Internal Medicine Pulmonary Disease | DX: Z09 Encounter for follow-up examination after completed treatment for conditions other than malignant neoplasm (principal); J44.9 Chronic obstructive pulmonary disease, unspecified; J18.9 Pneumonia, unspecified organism; Z87.891 Personal history of nicotine dependence; E78.5 Hyperlipidemia, unspecified; I10 Essential (primary) hypertension | CPT/HCPCS: 99214 ==

== ENCOUNTER 2022-02-04 11:58 | Outpatient (CLI) | payer MEDICARE, OTHER, SELFPAY ==
--- NOTE | 2022-02-04 12:09 | CT_ITS ---
WS: [id number] LDCT LUNG CANCER SCREENING TECHNIQUE: Noncontrast CT of the chest with coronal and sagittal reformatted images. CLINICAL INFORMATION: PERSONAL HX OF NICOTINE DEPENDENCE COMPARISON: CT chest 10 13,006 DLP: 67.00 mGy.cm DIvol: Mean CTDIvol: 1.60 (mGy) All CT scans at [facility] use at least one of these dose optimization techniques: automat ed exposure control; mA and/or kV adjustment per patient size (includes targeted exams where dose is matched to clinical indication); or iterative reconstruction. FINDINGS: No suspicious pulmonary parenchymal opacities. No acute pulmonary infiltrates. No focal pne umonia or pleural fluid. Moderate thoracic kyphosis. No acute compression. Hypertrophic changes thoracic spine. Disc space mickie rowing in the mid and lower thoracic spine. Normal caliber thoracic aorta. Aortic calcification. Coronary calcification.Tiny esophageal hiatal he rnia. No axillary lymphadenopathy. CT/CT lung screening [id number] IMPRESSION: LUNG-RADS: 1-Negative FOLLOW UP: 12 Month: Continue annual screening with LDCT
== END 2022-02-04 11:59 | disposition home or self-care (01) ==
LOC: RAD 11:58
PROVIDERS: PCP Family Medicine; Visit Provider Internal Medicine Pulmonary Disease
DX: Z12.2 Encounter for screening for malignant neoplasm of respiratory organs (principal); Z87.891 Personal history of nicotine dependence
CPT/HCPCS: 71271

== ENCOUNTER → 2022-02-08 10:53 | Outpatient (BNVA) | payer MEDICARE, OTHER, SELFPAY | PROVIDERS: PCP Family Medicine; Visit Provider Internal Medicine Pulmonary Disease | DX: R06.02 Shortness of breath (principal); J44.9 Chronic obstructive pulmonary disease, unspecified; T78.40XA Allergy, unspecified, initial encounter; F17.210 Nicotine dependence, cigarettes, uncomplicated | CPT/HCPCS: 36415; 82785; 85025; 85651; 86003; 99214 ==

== ENCOUNTER → 2022-04-20 14:23 | Outpatient (BNVA) | payer MEDICARE, OTHER, SELFPAY | PROVIDERS: PCP Family Medicine; Visit Provider Family Medicine | DX: E55.9 Vitamin D deficiency, unspecified (principal); E78.5 Hyperlipidemia, unspecified; I10 Essential (primary) hypertension; Z23 Encounter for immunization; F41.9 Anxiety disorder, unspecified; B00.1 Herpesviral vesicular dermatitis | CPT/HCPCS: 85025 ==

== ENCOUNTER → 2022-04-21 15:20 | Outpatient (BNVA) | payer MEDICARE, OTHER, SELFPAY | PROVIDERS: PCP Family Medicine; Visit Provider Family Medicine | DX: E55.9 Vitamin D deficiency, unspecified (principal); E78.5 Hyperlipidemia, unspecified; I10 Essential (primary) hypertension; Z23 Encounter for immunization; F41.9 Anxiety disorder, unspecified; B00.1 Herpesviral vesicular dermatitis | CPT/HCPCS: 80053; 80061; 82306; 84443 ==

== ENCOUNTER → 2022-11-18 11:56 | Outpatient (BNVA) | payer MEDICARE, OTHER, SELFPAY | PROVIDERS: PCP Family Medicine; Visit Provider Family Medicine | DX: T14.8XXA Other injury of unspecified body region, initial encounter (principal); W57.XXXA Bitten or stung by nonvenomous insect and other nonvenomous arthropods, initial encounter | CPT/HCPCS: 86618; 86666; 86757 ==

== ENCOUNTER 2023-04-17 08:09 | Inpatient (IN) | payer MEDICARE, OTHER, SELFPAY ==
[2023-04-17] VITALS (10 sets, daily range): BP systolic 95–122; BP diastolic 51–76; PULSE 89–106; RESP 16–18; TEMP 36.5–37; O2SAT 92–100; BMI 23.7
--- NOTE | 2023-04-17 08:12 | ED_ITS ---
HPI - GI Bleed General: Chief complaint: Abdominal Pain Stated complaint: RECTAL BLEEDING Time Seen by Provider: 04/17/23 08:11 Source: patient Mode of arrival: ambulatory History of Present Illness: 78-year-old female presents emergency room complaining of rectal bleeding syncopal episode. She got up this morning to the bathroom she got lightheaded and dizzy she went to the bathroom passed some blood and then when she stood up she passed out she laid on the floor for an unknown length of time. She had fallen earlier this week as syncopal episodes complaining some pain across her sacrum she has been able to ambulate. She does take aspirin daily but no other anticoagulants. She is on its own antihypertensives. No previous history of GI bleed. She has a history of COPD and she is supposed to use 2 L of oxygen cadence nuously but only uses occasionally. MD complaint: gross hematochezia Onset (ago): hour(s) Relieving factors: none Exacerbating factors: none Associated symptoms: Reports abdominal pain; Denies chills, fever(s) or rash Review of Systems Const: Denies: fever(s) or chills Card: Denies: chest pain Resp: Denies: dyspnea GI: Reports: abdominal pain and hematochezia : Denies: dysuria, urinary frequency or urinary urgency Musc: Denies: neck pain or back pain Skin/Breast: Denies: rash PFSH ED PFSH: Medical History (Updated 04/17/23 @ 16:14 by William Dhillon DO) Anxiety Hyperlipidemia Hypertension Osteoporosis Statin intolerance Vitamin D deficiency Surgical History History of bilateral cataract extraction (~2013) History of total left hip replacement (~2011) Family History Brother Heart disease Mother Heart disease Social History Smoking and tobacco/nicotine status: current every day tobacco/nicotine user Quit status (tobacco/nicotine): has quit using Year quit tobacco: 2021 Former quit date comment: 1.5ppd x 60 year Hx Alcohol intake: current Alcohol intake frequency: 0-2 Drinks per Day Substance/Drug Use: never Caregiver/support person: Yes Lives independently: Yes Household members: friend(s) Housing: House Marital status: / Current occupational status: retired Current gender identity: Female Physical Exam Const: GENERAL APPEARANCE: cooperative and comfortable ORIENTATION/CONSCIOUSNESS: Yes awake, Yes oriented to person, Yes oriented to place and Yes oriented to time HENMT: COMMON NORMALS: normocephalic, atraumatic and hearing grossly normal bilaterally HEAD & SCALP: normocephalic and atraumatic Resp: COMMON NORMALS: normal respiratory effort, No retractions, No use of accessory muscles and clear to auscultation bilaterally AUSCULTATION: clear to auscultation bilaterally Cardio: COMMON NORMALS: regular rate, regular rhythm and No murmurs present (Cardio) RATE: regular rate RHYTHM: regular rhythm GI: COMMON NORMALS: No hepatosplenomegaly present AUSCULTATION: Yes normoactive bowel sounds PALPATION: Yes Tenderness to palpation present (GI) (diffuse), No Guarding due to palpation present (GI) and Yes No hepatospl enomegaly present Extremity: COMMON NORMALS: normal to inspection, capillary refill normal, no clubbing, cyanosis or edema, no calf tenderness and no pedal edema Neuro: SENSORIUM/ORIENTATION: Yes oriented to person, Yes oriented to place and Yes oriented to time Skin: COMMON NORMALS: no rashes or lesions noted GENERAL SKIN EXAM: no rashes or lesions noted Course Vital Signs: Vital signs: Vital Signs Temperature 97.8 F 04/17/23 14:31 Pulse Rate 89 04/17/23 14:31 Respiratory Rate 18 04/17/23 14:31 Blood Pressure 103/59 04/17/23 14:31 Pulse Oximetry 93 04/17/23 15:39 Oxygen Delivery Me thod Room Air 04/17/23 15:39 Oxygen Flow Rate 2 04/17/23 08:15 MDM - GI Bleed Medical Decision Making Rectal bleeding with colitis. Patient does have 1 episode of watery bloody stool in the ER. Colitis noted on CT. Will admit Flagyl and ciprofloxacin started. Significant leukocytosis as well. Mild hyponatremia. Observation discussed with hospitalist Medical Records I reviewed the patient's medical records. Lab Data I reviewed the patient's lab results. 04/17/23 08:47 04/17/23 08:47 Radiology Impressions Abdomen/Pelvis CT 04/17/23 08:40 IMPRESSION: Segmental colitis, infectious or inflammatory. Diverticulosis. Nonobstructing right nephrolithiasis. Laboratory Results WBC 19.99 10^3/uL (3.29-11.43) H 04/17/23 08:47 Corrected WBC Cancelled 04/17/23 08:19 RBC 5.00 10^6/uL (3.85-5.65) 04/17/23 08:47 Hgb 15.60 g/dL (11.27-16.99) 04/17/23 08:47 Hct 46.9 % (36-47) 04/17/23 08:47 MCV 93.8 fl (85-98) 04/17/23 08:47 MCH 31.2 pg (27-33) 04/17/23 08:47 MCHC 33.3 g/dL (30-55) 04/17/23 08:47 RDW 12.5 % (12.1-15.1) 04/17/23 08:47 Plt Count 319 10^3/cmm (157-399) 04/17/23 08:47 MPV 10.5 fL (7.4-10.4) H 04/17/23 08:47 Gran % Cancelled 04/17/23 08:19 Neut % (Auto) 85.2 % 04/17/23 08:47 Lymph % (Auto) 8.0 % 04/17/23 08:47 [place] % (Auto) 5.9 % 04/17/23 08:47 Eos % (Auto) 0.2 % 04/17/23 08:47 Baso % (Auto) 0.2 % 04/17/23 08:47 Neut # (Auto) 17.04 10^3/uL (1.8-7.7) H 04/17/23 08:47 Lymph # (Auto) 1.6 10^3/uL (0.8-4.8) 04/17/23 08:47 Grand # (Auto) 1.2 10^3/uL (0.2-0.9) H 04/17/23 08:47 Eos # (Auto) 0.0 10^3/uL (0.0-0.8) 04/17/23 08:47 Baso # (Auto) 0.0 10^3/uL (0.0-0.1) 04/17/23 08:47 Absolute Gran (auto) Cancelled 04/17/23 08:19 Nucleated RBC % (auto) 0 % 04/17/23 08:47 Nucleated RBCs # 0.0 /100WBC 04/17/23 08:47 Sodium 135 mmol/L (136-145) L 04/17/23 08:47 Potassium 4.0 mmol/L (3.5-5.1) 04/17/23 08:47 Chloride 98 mmol/L (98-107) 04/17/23 08:47 Carbon Dioxide 26 mmol/L (22-29) 04/17/23 08:47 Anion Gap 15.0 (5-19) 04/17/23 08:47 BUN 34 mg/dL (8-23) H 04/17/23 08:47 Creatinine 1.1 mg/dL (0.5-0.9) H 04/17/23 08:47 GFR Calculation Not Reportable 04/17/23 08:47 Glucose 139 mg/dL (65-115) H 04/17/23 08:47 Calculated Osmolality 290 mOsm/kg (285-295) 04/17/23 08:47 Calcium 10.1 mg/dL (8.5-10.5) 04/17/23 08:47 Total Bilirubin 0.3 mg/dL (0.15-1.2) 04/17/23 08:47 AST 17 U/L (0-32) 04/17/23 08:47 ALT 11 U/L (0-33) 04/17/23 08:47 Alkaline Phosphatase 76 U/L (35-105) 04/17/23 08:47 Creatine Kinase 24 U/L (26-192) L 04/17/23 08:47 Troponin T Baseline 17 ng/L (0-10) H 04/17/23 08:47 Troponin T 120 Minute 14.64 ng/L (0-10) H 04/17/23 10:10 Delta Troponin T -2.36 ABS# (0-10) L 04/17/23 10:10 Total Protein 6.5 g/dL (6.6-8.7) L 04/17/23 08:47 Albumin 4.0 g/dL (3.5-5.2) 04/17/23 08:47 Globulin 2.5 g/dL (1.3-4.6) 04/17/23 08:47 All radiology interpretation(s) finalized by discharge Discharge Plan Discharge Patient Disposition: Admitted As Inpatient Admit Provider: Pako Rios Clinical Impression: Hematochezia, Leukocytosis, Hyponatremia, Colitis Condition: Stable Coding Level of Care Code ED Conditioner Tumbler Operator for Reinier Dexter
--- NOTE | 2023-04-17 08:40 | CTR_ITS ---
PROCEDURE INFORMATION: Exam: CT Abdomen And Pelvis With Contrast Exam date and time: 04/17/2023 9:22 AM Age: 78 years old Clinical indication: Abdominal pain; Generalized; Prior surgery; Surgery date: 6+ months; Surgery type: Appy hysto; Additional info: Abd pain bright red blood in stool TECHNIQUE: Imaging protocol: Computed tomography of the abdomen and pelvis with contrast. Radiation optimization: All CT scans at this facility use at least one of these dose optimization techniques: automated exposure control; mA and/or kV adjustment per patient size (includes targeted exams where dose is matched to clinical indication); or iterative reconstruction. Contrast material: OMNI 350; Contrast volume: 100 ml; Contrast route: INTRAVENOUS (IV); REPORTING DATA: Count of CT and Cardiac NM exams in prior 12 months: This patient has received 0 known CTs and 0 known cardiac nuclear medicine studies in the 12 months prior to the current study. COMPARISON: CT lung screening [id number] 02/04/2022 12:41 PM RADIATION DOSE METRICS: Total DLP (mGy-cm): 475.07 FINDINGS: Liver: The liver is normal in size and contour. No enhancing lesion is identified. The portal vein is patent. Gallbladder and bile ducts: The gallbladder is partially distended. Pancreas: Normal. No ductal dilation. Spleen: Normal. No splenomegaly. Adrenal glands: Normal. No mass. Kidneys and ureters: The kidneys enhance symmetrically and there is no hydronephrosis. Near the lower pole the right kidney there is a 2 mm nonobstructing calculus. Stomach and bowel: There is segmental mural thickening of the colon extending from the proximal transverse through the descending segments paracolic inflammatory change. Extensive sigmoid diverticulosis is noted, scattered diverticular disease elsewhere in the colon is noted. Appendix: No evidence of appendicitis. Intraperitoneal space: There is trace free pelvic fluid on the right. Vasculature: The abdominal aorta is normal in course and caliber with moderate athero sclerotic calcification. Lymph nodes: Unremarkable. No enlarged lymph nodes. Urinary bladder: The urinary bladder is contracted. Reproductive: Unremarkable as visualized. Bones/joints: The patient is post bilateral total hip arthroplasty. Degenerative changes are noted in the bones. There is a levoconvex curvature of the lumbar spine. Soft tissues: Unremarkable. CT/CT abdomen pelvis w con* [id number] IMPRESSION: Segmental colitis, infectious or inflammatory. Diverticulosis. Nonobstructing right nephrolithiasis.
[2023-04-17 08:54] LABS: Basophils % 0.2 %; Eosinophils % 0.2 %; Hematocrit 46.9 % (36-47); Lymphocytes # 1.6 10^3/uL (0.8-4.8); Mean Corpuscular HGB Conc 33.3 g/dL (30-55); Mean Corpuscular Hemoglobin 31.2 pg (27-33); Mean Corpuscular Volume 93.8 fl (85-98); Mean Platelet Volume 10.5 fL (7.4-10.4); Monocytes # 1.2 10^3/uL (0.2-0.9); Monocytes % 5.9 %; Neutrophils # 17.04 10^3/uL (1.8-7.7); Neutrophils % 85.2 %; Nucleated Red Blood Cells % 0 %; Platelet Count 319 10^3/cmm (157-399); Red Cell Distribution Width 12.5 % (12.1-15.1); White Blood Count 19.99 10^3/uL (3.29-11.43)
[2023-04-17 09:11] LABS: Alanine Aminotransferase 11 U/L (0-33); Alkaline Phosphatase 76 U/L (35-105); Aspartate Amino Transferase 17 U/L (0-32); Blood Urea Nitrogen 34 mg/dL (8-23); Calcium 10.1 mg/dL (8.5-10.5); Carbon Dioxide 26 mmol/L (22-29); Chloride 98 mmol/L (98-107); Creatine Phosphokinase 24 U/L (26-192); Globulin 2.5 g/dL (1.3-4.6); Glucose 139 mg/dL (65-115); Osmolality Calculated 290 mOsm/kg (285-295); Sodium 135 mmol/L (136-145); Total Bilirubin 0.3 mg/dL (0.15-1.2); Total Protein 6.5 g/dL (6.6-8.7)
[2023-04-17] MEDS: iohexol 350 mg/mL 500 mL Btl (per mL) IV (09:25)
--- NOTE | 2023-04-17 10:03 | ECG_ITS ---
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 Measurements Intervals [place] Rate: 103 P: 56 ME: 139 QRS: 89 QRSD: 128 T: 54 QT: 362 QTc: 475 Interpretive Statements Sinus rhythm Right bundle branch block Compared to ECG 07/05/2021 14:09:18 Sinus arrhythmia no longer present Electronically Signed On 04-17-2023 10:54:06 CDT by Mirtha Johnson M.D. [id number]
--- NOTE | 2023-04-17 10:14 | PC.PHAR ---
PT HAS A NEW BP MEDICATION FROM 03/31, SHE HAS STOPPED TAKING, STATES DOCTOR DID NOT DISCUSS ADDING OR CHANGING BP MEDICATION. PT HAS 2 BOTTLES OF THE NEW MED TRIAMTERENE-HYDROCHLOROTHIAZIDE 37.5-25 MG. ONE IS TABLET FORM AND THE OTHER IS CAPSULE FORM. UNSURE IF PT HAS BEEN TAKING ORIGINAL BP MEDICATION LISINOPRIL-HYDROCHLOROTHIAZIDE 20-12.5 MG TABLET. NO BOTTLE FOR IT WAS FOUND IN HER BAG. 04/17/23
[2023-04-17 10:21] LABS: Troponin(5th) Baseline 17 ng/L (0-10)
[2023-04-17 10:33] LABS: Troponin 5 2HR 14.64 ng/L (0-10)
[2023-04-17 10:37] LABS: Troponin 5 2HR Delta -2.36 ABS# (0-10)
[2023-04-17] MEDS: ciprofloxacin 400 MG/200 ML PREMIX 200 MG IV (11:49)
--- NOTE | 2023-04-17 11:53 | ECG_ITS ---
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 Measurements Intervals [place] Rate: 97 P: 74 HI: 142 QRS: 89 QRSD: 130 T: 69 QT: 376 QTc: 479 Interpretive Statements SINUS RHYTHM WITH OCCASIONAL SUPRAVENTRICULAR PREMATURE COMPLEXES RIGHT BUNDLE BRANCH BLOCK [120+ ms QRS DURATION, UPRIGHT V1, 40+ ms S IN I/aVL/V4/V5/V6] Compared to ECG 04/17/2023 10:03:39 No significant changes Electronically Signed On 04-18-2023 10:49:45 CDT by Mirtha Johnson M.D. [id number]
[2023-04-17] MEDS: metroNIDAZOLE IV 500 MG/100 ML PREMIX 100 MG IV (12:56)
[2023-04-17] MEDS: sodium chloride 0.9% 1,000 ML 100 ML IV (14:19)
[2023-04-17 14:32] LABS: Troponin 5 6HR 16.94 ng/L (0-10)
[2023-04-17 14:33] LABS: Troponin 5 6HR Delta -0.06 ng/L (0-12)
--- NOTE | 2023-04-17 15:06 | PM.HP ---
Providers/Chief Complaint Admitting Physician: aPko Rios MD Primary Care Provider: Idania Campbell MD Chief Complaint: RECTAL BLEEDING History of Present Illness Addie Shultz is a 78 year old female with past medical history of hypertension, COPD, hyperlipidemia, anxiety presented to the ER today because of passing out earlier today morning. As per the patient earlier today morning at 6 AM she had abdominal pain which is cramping in nature. While she was going to the bathroom she passed out. After waking up she had diarrhea. Since then she has had multiple episodes of diarrheal bowel movements with passing of blood and blood clots. Still complaining of abdominal pain. Denies any nausea or vomiting. Denies any sick contacts, recent travel, anybody around her having similar complaints. She denies eating or drinking anything new other than a chocolate milkshake from [employer]. Last colonoscopy was many years ago which was found to be normal and underwent polypectomy. Denies any recent changes in medications. Review of Systems General: Reports: 10 or more systems reviewed and unremarkable except in HPI and below Const: Denies: fever(s), chills, body aches, change in appetite, change in weight, malaise, night sweats, diaphoresis, change in sleep pattern, daytime sleepiness or snoring Eyes: Denies: change in vision, blurry vision, photophobia, eye discomfort or eye discharge ENMT: Denies: throat pain, enlarged tonsils, hoarseness, mouth pain, oral sores, dry mouth, tinnitus, nasal congestion or post nasal drip Card: Denies: chest pain, palpitations, irregular heart rhythm, edema, swelling of feet/ankles, lightheadedness, syncope, pre-syncope, dyspnea on exertion, orthopnea, leg pain with exertion or acrocyanosis Resp: Denies: dyspnea, productive cough, non-productive cough, wheezing, stridor, pain on inspiration, change in phlegm color, hemoptysis or chest congestion GI: Denies: abdominal pain, nausea, vomiting, hematemesis, coffee ground emesis, dysphagia, heartburn, diarrhea, constipation, bloating, GI cramping, change in bowel habits, pain on defecation, hematochezia or melena : Denies: flank pain, dysuria, urinary frequency, urinary urgency, urinary hesitancy, nocturia or hematuria Musc: Denies: neck pain, back pain, extremity pain, joint pain, joint swelling, joint redness, joint stiffness or limited range of motion Neuro: Denies: headache(s), numbness in extremities, weakness in extremities, sensory changes, lack of coordination, difficulty walking, frequent falls, dizziness, vertigo, confusion, Slurred speech present, difficulty communicating thoughts or seizure-like activity Psych: Denies: anxiety, depression, mood swings, panic attacks, hopelessness or irritability Endo: Denies: polyuria, polydipsia, tired all the time, cold intolerance, excessive sweating, flushing or heat intolerance Ananda/Lymph: Denies: easy bruising or easy bleeding All/Imm: Denies: tongue swelling, facial swelling or acute wheezing Medications/Allergies Home Medications Medication Instructions Recorded Confirmed Last Taken Type aspirin 81 mg tablet,delayed 81 mg PO DAILY 08/01/19 04/17/23 04/17/23 History release albuterol sulfate 90 mcg/actuation 1 puff inhalation Q6H PRN 04/20/22 04/17/23 Unknown Rx aerosol inhaler (Ventolin HFA) shortness of breath or wheezing #18 grams citalopram 20 mg tablet 20 mg PO DAILY #90 tabs 03/31/23 04/17/23 04/17/23 Rx cyclobenzaprine 10 mg tablet 10 mg PO BID PRN muscle spasm #180 03/31/23 04/17/23 04/17/23 Rx tabs triamterene 37.5 1 tab PO DAILY #30 tabs 03/31/23 04/17/23 Unknown Rx mg-hydrochlorothiazide 25 mg tablet amlodipine 5 mg tablet 5 mg PO DAILY 04/17/23 04/17/23 04/17/23 History atorvastatin 10 mg tablet 10 mg PO DAILY 04/17/23 04/17/23 04/17/23 History lisinopril 20 1 tab PO DAILY 04/17/23 04/17/23 04/17/23 History mg-hydrochlorothiazide 12.5 mg tablet Allergies Allergy/AdvReac Type Severity Reaction Status Date / Time codeine Allergy Mild ADR-Nausea Verified 03/31/23 13:34 Sulfa (Sulfonamide Allergy Mild ADR-Nausea Verified 03/31/23 13:34 Antibiotics) PFSH Acute PFSH: Medical History (Updated 04/17/23 @ 15:30 by Pako Rios MD) Anxiety Hyperlipidemia Hypertension Osteoporosis Statin intolerance Vitamin D deficiency Surgical History History of bilateral cataract extraction (~2013) History of total left hip replacement (~2011) Family History Brother Heart disease Mother Heart disease Social History Smoking and tobacco/nicotine status: current every day tobacco/nicotine user Quit status (tobacco/nicotine): has quit using Year quit tobacco: 2021 Former quit date comment: 1.5ppd x 60 year Hx Alcohol intake: current Alcohol intake frequency: 0-2 Drinks per Day Substance/Drug Use: never Caregiver/support person: Yes Lives independently: Yes Household members: friend(s) Housing: House Marital status: / Current occupational status: retired Current gender identity: Female Vitals/I&O/Wt Last Vital Signs Temp 97.8 F 04/17/23 14:31 Pulse 89 04/17/23 14:31 Resp 18 04/17/23 14:31 BP 103/59 04/17/23 14:31 Pulse Ox 93 04/17/23 14:31 O2 Del Method Room Air 04/17/23 14:31 O2 Flow Rate 2 04/17/23 08:15 04/17/23 04/17/23 04/17/23 06:59 14:59 22:59 Intake Total 220 / 220 Balance 220 / 220 Weight last 48 hrs Weight 66.678 kg Physical Exam Narrative: General: No acute distress, AO x3, dehydrated HEENT: PERRLA, pupils bilaterally equal and reactive Chest: Normal vesicular breath sounds, no added sounds, equal good air entry bilaterally CVS: S1-S2 regular, no murmurs, no tachycardia, no gallops, no rubs Abdomen: Soft, no organomegaly, bowel sounds present, generalized abdominal tenderness Neuro: No focal deficits, no facial deformity, AO x3, power 5/5 in all limbs Data 04/17/23 08:47 04/17/23 08:47 Other Labs: Radiology Impressions Abdomen/Pelvis CT 04/17/23 08:40 IMPRESSION: Segmental colitis, infectious or inflammatory. Diverticulosis. Nonobstructing right nephrolithiasis. Laboratory Results WBC 19.99 10^3/uL (3.29-11.43) H 04/17/23 08:47 Corrected WBC Cancelled 04/17/23 08:19 RBC 5.00 10^6/uL (3.85-5.65) 04/17/23 08:47 Hgb 15.60 g/dL (11.27-16.99) 04/17/23 08:47 Hct 46.9 % (36-47) 04/17/23 08:47 MCV 93.8 fl (85-98) 04/17/23 08:47 MCH 31.2 pg (27-33) 04/17/23 08:47 MCHC 33.3 g/dL (30-55) 04/17/23 08:47 RDW 12.5 % (12.1-15.1) 04/17/23 08:47 Plt Count 319 10^3/cmm (157-399) 04/17/23 08:47 MPV 10.5 fL (7.4-10.4) H 04/17/23 08:47 Gran % Cancelled 04/17/23 08:19 Neut % (Auto) 85.2 % 04/17/23 08:47 Lymph % (Auto) 8.0 % 04/17/23 08:47 [place] % (Auto) 5.9 % 04/17/23 08:47 Eos % (Auto) 0.2 % 04/17/23 08:47 Baso % (Auto) 0.2 % 04/17/23 08:47 Neut # (Auto) 17.04 10^3/uL (1.8-7.7) H 04/17/23 08:47 Lymph # (Auto) 1.6 10^3/uL (0.8-4.8) 04/17/23 08:47 [place] # (Auto) 1.2 10^3/uL (0.2-0.9) H 04/17/23 08:47 Eos # (Auto) 0.0 10^3/uL (0.0-0.8) 04/17/23 08:47 Baso # (Auto) 0.0 10^3/uL (0.0-0.1) 04/17/23 08:47 Absolute Gran (auto) Cancelled 04/17/23 08:19 Nucleated RBC % (auto) 0 % 04/17/23 08:47 Nucleated RBCs # 0.0 /100WBC 04/17/23 08:47 Sodium 135 mmol/L (136-145) L 04/17/23 08:47 Potassium 4.0 mmol/L (3.5-5.1) 04/17/23 08:47 Chloride 98 mmol/L (98-107) 04/17/23 08:47 Carbon Dioxide 26 mmol/L (22-29) 04/17/23 08:47 Anion Gap 15.0 (5-19) 04/17/23 08:47 BUN 34 mg/dL (8-23) H 04/17/23 08:47 Creatinine 1.1 mg/dL (0.5-0.9) H 04/17/23 08:47 GFR Calculation Not Reportable 04/17/23 08:47 Glucose 139 mg/dL (65-115) H 04/17/23 08:47 Calculated Osmolality 290 mOsm/kg (285-295) 04/17/23 08:47 Calcium 10.1 mg/dL (8.5-10.5) 04/17/23 08:47 Total Bilirubin 0.3 mg/dL (0.15-1.2) 04/17/23 08:47 AST 17 U/L (0-32) 04/17/23 08:47 ALT 11 U/L (0-33) 04/17/23 08:47 Alkaline Phosphatase 76 U/L (35-105) 04/17/23 08:47 Creatine Kinase 24 U/L (26-192) L 04/17/23 08:47 Troponin T Baseline 17 ng/L (0-10) H 04/17/23 08:47 Troponin T 120 Minute 14.64 ng/L (0-10) H 04/17/23 10:10 Delta Troponin T -2.36 ABS# (0-10) L 04/17/23 10:10 Troponin T Hi Sens 6Hr 16.94 ng/L (0-10) H 04/17/23 14:07 Troponin T Hi Sens 6Hr Delta -0.06 ng/L (0-12) L 04/17/23 14:07 Total Protein 6.5 g/dL (6.6-8.7) L 04/17/23 08:47 Albumin 4.0 g/dL (3.5-5.2) 04/17/23 08:47 Globulin 2.5 g/dL (1.3-4.6) 04/17/23 08:47 A&P Assessment and plan (1) Hematochezia: Most likely infectious. Appreciate CT abdomen pelvis results. Check lactate, procalcitonin, blood culture, stool studies. No previous history of C. difficile. For now start patient on IV Zosyn. Monitor hemoglobin every 12 hourly. Protonix 40 mg IV twice daily. (2) Leukocytosis: (3) ADA (acute kidney injury): In setting of diarrhea leading to dehydration along with home use of lisinopril/hydrochlorothiazide. Normal saline with 100 cc/h. Monitor BMP daily. No metabolic acidosis. Medical reconciliation done for nephrotoxic drugs. Dehydration in setting of diarrhea along with home dose of Lasix (4) Hyponatremia: Plan Hypertension: Goal blood pressure less than 140/90 mmHg. Blood pressure is at goal. Hold off on lisinopril and hydrochlorothiazide. Continue with home dose of amlodipine. Full code Clear liquid diet Protonix for PUD prophylaxis SCD for DVT prophylaxis. Attestations Medical Necessity Statement*: Admission for more than 2 midnights for management of hematochezia, ADA in setting of dehydration Diagnoses Hematochezia K92.1 Leukocytosis D72.829 ADA (acute kidney injury) N17.9 Hyponatremia E87.1
--- NOTE | 2023-04-17 15:30 | ECG_ITS ---
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 Measurements Intervals [place] Rate: 103 P: 76 MA: 137 QRS: 84 QRSD: 130 T: 58 QT: 365 QTc: 479 Interpretive Statements SINUS TACHYCARDIA POSSIBLE LEFT ATRIAL ENLARGEMENT [-0.1mV P-WAVE IN V1/V2] RIGHT BUNDLE BRANCH BLOCK [120+ ms QRS DURATION, UPRIGHT V1, 40+ ms S IN I/aVL/V4/V5/V6] Compared to ECG 04/17/2023 12:02:15 Sinus rhythm no longer present Electronically Signed On 04-18-2023 10:49:02 CDT by Mirtha Johnson M.D. [id number]
[2023-04-17 15:59] LABS: Procalcitonin 0.29 ng/mL (0-0.5)
[2023-04-17 16:04] LABS: Lactic Sepsis W/Reflex 2.3 mmol/L (0.5-2.2)
[2023-04-17 16:09] LABS: Iron 19 ug/dL (37-145); Percent Saturation 8.1 % (20-50); Thyroid Stimulating Hormone 0.69 uIU/mL (0.27-4.20); Total Iron Binding Capacity 233 mcg/dl; Unsaturated Iron Binding 214 ug/dL (112-347); Vitamin B12 550 pg/mL (232-1245)
[2023-04-17 16:29] LABS: Reflex Lactate Order REFLEX LACTIC ORDERD
[2023-04-17] MEDS: piperacillin-tazobactam 3.375 GM in sodium chloride 0.9% (plus) 50 ML IV (16:57)
[2023-04-17] MEDS: pantoprazole 40 mg SDV IVP (16:58)
[2023-04-17 19:49] LABS: Lactic Acid level (Lactate) 3.2 mmol/L (0.5-2.2)
[2023-04-18] VITALS (11 sets, daily range): BP systolic 93–125; BP diastolic 54–77; PULSE 92–109; RESP 14–20; TEMP 36.6–36.9; O2SAT 90–96
[2023-04-18] MEDS: sodium chloride 0.9% 1,000 ML 100 ML IV ×3 (00:16→20:57)
[2023-04-18] MEDS: piperacillin-tazobactam 3.375 GM in sodium chloride 0.9% (plus) 50 ML IV ×3 (00:17→17:46)
[2023-04-18] MEDS: pantoprazole 40 mg SDV IVP ×2 (03:43→17:50)
[2023-04-18 05:59] LABS: Basophils # 0.1 10^3/uL (0.0-0.1); Basophils % 0.4 %; Eosinophils % 0.2 %; Hematocrit 41.7 % (36-47); Lymphocytes % 10.9 %; Mean Corpuscular HGB Conc 32.9 g/dL (30-55); Mean Corpuscular Hemoglobin 31.4 pg (27-33); Mean Corpuscular Volume 95.4 fl (85-98); Monocytes # 1.4 10^3/uL (0.2-0.9); Monocytes % 7.6 %; Neutrophils # 14.91 10^3/uL (1.8-7.7); Neutrophils % 80.4 %; Nucleated Red Blood Cells % 0 %; Platelet Count 223 10^3/cmm (157-399); Red Blood Count 4.37 10^6/uL (3.85-5.65); Red Cell Distribution Width 12.7 % (12.1-15.1); White Blood Count 18.54 10^3/uL (3.29-11.43)
[2023-04-18 06:15] LABS: Estmated Average Glucose 123; Hemoglobin A1C 5.9 % (4.0-6.0)
[2023-04-18 06:18] LABS: Alanine Aminotransferase 8 U/L (0-33); Albumin Level 3.2 g/dL (3.5-5.2); Alkaline Phosphatase 64 U/L (35-105); Anion Gap 12.5 (5-19); Aspartate Amino Transferase 13 U/L (0-32); Blood Urea Nitrogen 19 mg/dL (8-23); Calcium 8.5 mg/dL (8.5-10.5); Carbon Dioxide 25 mmol/L (22-29); Chloride 103 mmol/L (98-107); Globulin 2.3 g/dL (1.3-4.6); Glucose 111 mg/dL (65-115); Magnesium 1.7 mg/dL (1.7-2.3); Osmolality Calculated 287 mOsm/kg (285-295); Phosphorus 2.2 mg/dL (2.5-4.5); Potassium 3.5 mmol/L (3.5-5.1); Sodium 137 mmol/L (136-145); Total Bilirubin 0.7 mg/dL (0.15-1.2); Total Protein 5.5 g/dL (6.6-8.7)
[2023-04-18 06:19] LABS: Chol HDL Ratio 1.95 mg/dL (0.0-4.40); Cholesterol 125 mg/dL (0-200); HDL Cholesterol 64 mg/dL (60-100); LDL Cholesterol Calculated 49 mg/dL (50-129); LDL HDL Ratio 0.77 RATIO (0.00-3.22); Triglycerides 60 mg/dL (0-150)
[2023-04-18 06:32] LABS: Folate Level 11.4 ng/mL (4.8-37.3)
[2023-04-18] MEDS: citalopram 20 mg Tablet PO (08:23)
[2023-04-18] MEDS: atorvastatin 40 mg Tablet 10 MG PO (08:23)
[2023-04-18] MEDS: amlodipine 5 mg Tablet PO (08:23)
--- NOTE | 2023-04-18 15:17 | PM.PN ---
Subjective Subjective: Less number of bowel movements and less bleeding. Vitals/I&O/Wt Last Vital Signs Temp 98.0 F 04/18/23 12:00 Pulse 96 04/18/23 12:00 Resp 16 04/18/23 12:00 BP 114/73 04/18/23 12:00 Pulse Ox 91 04/18/23 12:00 O2 Del Method Room Air 04/18/23 12:00 O2 Flow Rate 2 04/17/23 08:15 04/18/23 04/18/23 04/18/23 06:59 14:59 22:59 Intake Total 1044 / 1794 Balance 1044 / 1794 Weight last 48 hrs Weight 66.723 kg Weight 66.678 kg Physical Exam Narrative: Older thin female in no acute distress. She had 3 friends visiting with her. Neurologic: Alert and oriented to person place time and situation patient is nonfocal to exam Heart: Normal S1-S2 without murmurs clicks gallops or rubs Lungs diminished breath sounds throughout poor expiratory phase scattered wheezes Abdomen: Soft mild diffuse tenderness diminished bowel sounds Extremities: No clubbing cyanosis or edema Data 04/18/23 05:20 04/18/23 05:20 Micro: Microbiology 04/17/23 15:30 Bacterial Antigens - Final Urine Kidney A&P Assessment and plan (1) Colitis: Most likely diverticulitis Patient on Zosyn (2) Leukocytosis: Slight improvement in white blood cell count (3) Hematochezia: Decreasing (4) COPD (chronic obstructive pulmonary disease): Patient does not desire to quit smoking at this time Plan Continue current regimen. Bowel rest. Antibiotics. Pain management. Attestations Medical Necessity Statement*: Patient requires continued hospitalization due to colitis requiring IV antibiotics. Coding Level of Care Code Acute Code for [facility] Diagnoses Colitis K52.9 Leukocytosis D72.829 Hematochezia K92.1 COPD (chronic obstructive pulmonary disease) J44.9
[2023-04-19] VITALS (10 sets, daily range): BP systolic 106–137; BP diastolic 67–84; PULSE 81–92; RESP 15–22; TEMP 36.4–36.8; O2SAT 90–95
[2023-04-19] MEDS: piperacillin-tazobactam 3.375 GM in sodium chloride 0.9% (plus) 50 ML IV ×4 (00:31→23:33)
[2023-04-19] MEDS: pantoprazole 40 mg SDV IVP ×2 (03:28→16:12)
[2023-04-19] MEDS: sodium chloride 0.9% 1,000 ML 100 ML IV ×2 (06:33→17:58)
[2023-04-19] MEDS: atorvastatin 40 mg Tablet 10 MG PO (08:46)
[2023-04-19] MEDS: amlodipine 5 mg Tablet PO (08:48)
[2023-04-19] MEDS: citalopram 20 mg Tablet PO (08:48)
--- NOTE | 2023-04-19 11:24 | PM.PN ---
Subjective Subjective: Today reports only a very small blood clot with bowel movement. Vitals/I&O/Wt Last Vital Signs Temp 98.1 F 04/19/23 07:40 Pulse 91 04/19/23 07:40 Resp 16 04/19/23 07:40 BP 120/76 04/19/23 07:40 Pulse Ox 92 04/19/23 09:30 O2 Del Method Room Air 04/19/23 09:30 O2 Flow Rate 2 04/17/23 08:15 04/18/23 04/19/23 04/19/23 22:59 06:59 14:59 Intake Total 1770 / 3740 1010 / 4750 360 / 360 Balance 1770 / 3740 1010 / 4750 360 / 360 Weight last 48 hrs Weight 66.723 kg Physical Exam Narrative: Older thin female in no acute distress seen sitting in a chair today Neurologic: Alert and oriented to person place time and situation patient is nonfocal to exam Heart: Normal S1-S2 without murmurs clicks gallops or rubs Lungs diminished breath sounds throughout poor expiratory phase scattered wheezes Abdomen: Soft mild diffuse tenderness diminished bowel sounds Extremities: No clubbing cyanosis or edema Mild to moderate kyphosis Data 04/18/23 05:20 04/18/23 05:20 A&P Assessment and plan (1) Colitis: Most likely diverticulitis Patient on Zosyn (2) Leukocytosis: Slight improvement in white blood cell count We will repeat today (3) Hematochezia: Decreasing (4) COPD (chronic obstructive pulmonary disease): Patient does not desire to quit smoking at this time Plan Continue current regimen. Antibiotics. Pain management. IV fluids Attestations Medical Necessity Statement*: Patient requires continued hospitalization due to colitis requiring IV antibiotics. Coding Level of Care Code Acute Code for [facility] Diagnoses Colitis K52.9 Leukocytosis D72.829 Hematochezia K92.1 COPD (chronic obstructive pulmonary disease) J44.9
[2023-04-19 11:37] LABS: Blood Urea Nitrogen 7 mg/dL (8-23); Calcium 8.3 mg/dL (8.5-10.5); Carbon Dioxide 27 mmol/L (22-29); Chloride 102 mmol/L (98-107); Glucose 94 mg/dL (65-115); Osmolality Calculated 282 mOsm/kg (285-295); Sodium 137 mmol/L (136-145)
[2023-04-19] MEDS: acetaminophen 325 mg Tablet 650 MG PO (21:27)
[2023-04-19] MEDS: morphine 4 mg/mL SDV 1 mL 2 MG IVP (22:35)
[2023-04-20] VITALS (7 sets, daily range): BP systolic 110–142; BP diastolic 64–80; PULSE 71–90; RESP 14–20; TEMP 36.4–36.8; O2SAT 91–94
[2023-04-20] MEDS: sodium chloride 0.9% 1,000 ML 100 ML IV (03:39)
[2023-04-20] MEDS: pantoprazole 40 mg SDV IVP (03:53)
[2023-04-20 05:49] LABS: Basophils # 0.1 10^3/uL (0.0-0.1); Basophils % 0.5 %; Eosinophils # 0.3 10^3/uL (0.0-0.8); Eosinophils % 2.3 %; Hematocrit 36.9 % (36-47); Lymphocytes # 1.5 10^3/uL (0.8-4.8); Mean Corpuscular Hemoglobin 31.1 pg (27-33); Mean Corpuscular Volume 97.1 fl (85-98); Mean Platelet Volume 10.6 fL (7.4-10.4); Monocytes # 0.8 10^3/uL (0.2-0.9); Monocytes % 7.4 %; Neutrophils # 8.55 10^3/uL (1.8-7.7); Neutrophils % 76.4 %; Nucleated Red Blood Cells % 0 %; Platelet Count 203 10^3/cmm (157-399); Red Cell Distribution Width 12.3 % (12.1-15.1)
[2023-04-20] MEDS: piperacillin-tazobactam 3.375 GM in sodium chloride 0.9% (plus) 50 ML IV (06:56)
[2023-04-20] MEDS: atorvastatin 40 mg Tablet 10 MG PO (08:20)
[2023-04-20] MEDS: amlodipine 5 mg Tablet PO (08:20)
[2023-04-20] MEDS: citalopram 20 mg Tablet PO (08:20)
--- NOTE | 2023-04-20 10:48 | PM.DCS ---
Discharge Providers Date of Admission: 04/17/23 13:10 Date of Discharge: April 20, 2023 Attending Provider at Admission: Pako Rios MD Attending Provider at Discharge: Selvin Knowles DO Primary Care Provider: Idania Campbell MD Diagnoses at Discharge Discharge Diagnosis (1) Colitis: Status: Acute (2) Leukocytosis: Status: Acute (3) Hematochezia: Status: Acute (4) COPD (chronic obstructive pulmonary disease): Status: Acute Reason for Visit Reason for Visit: RECTAL BLEEDING Brief History: 78-year-old female presents emergency room complaining of rectal bleeding syncopal episode.? She got up this morning to the bathroom she got lightheaded and dizzy she went to the bathroom passed some blood and then when she stood up she passed out she laid on the floor for an unknown length of time.? She had fallen earlier this week as syncopal episodes complaining some pain across her sacrum she has been able to ambulate.? She does take aspirin daily but no other anticoagulants.? She is on its own antihypertensives.? No previous history of GI bleed.? She has a history of COPD and she is supposed to use 2 L of oxygen continuously but only uses occasionally.? Hospital Course Hospital Course Patient was found to have colitis and started on Zosyn. Her leukocytosis was improved with antibiotics. Her hematochezia was decreasing and has very minimal blood upon wiping today she had a normal bowel movement. She was educated on diverticulosis diet. And informed that if bleeding were to increase she should return back to emergency room as well as follow-up with her PCP in 1 week Complete a full 10 to 12-day antibiotic course with Cipro and Flagyl. Physical Exam Narrative: Older thin female in no acute distress Neurologic: Alert and oriented to person place time and situation patient is nonfocal to exam Heart: Normal S1-S2 without murmurs clicks gallops or rubs Lungs diminished breath sounds throughout poor expiratory phase scattered wheezes Abdomen: Soft mild diffuse tenderness diminished bowel sounds Extremities: No clubbing cyanosis or edema Mild to moderate kyphosis Discharge Data Studies Completed and Pending Completed Studies During Hospitalization Category Date Time Status CT abdomen pelvis w con* [id number] Stat Cat Scan 04/17/23 08:40 Completed Pending at discharge Category Date Time Status Clostridium Diffi Toxin Reflex Routine Lab 04/17/23 09:55 Ordered Immunochemical Fecal OCB Routine Lab 04/17/23 09:55 Ordered Lactoferrin Routine Lab 04/17/23 09:55 Ordered OVA and Parasites, Conc and PE Routine Lab 04/17/23 09:55 Ordered Salmonella / Shigella / Campy Routine Lab 04/17/23 09:55 Ordered Radiology Impressions Abdomen/Pelvis CT 04/17/23 08:40 IMPRESSION: Segmental colitis, infectious or inflammatory. Diverticulosis. Nonobstructing right nephrolithiasis. Laboratory Results WBC 11.20 10^3/uL (3.29-11.43) 04/20/23 05:15 Corrected WBC Cancelled 04/17/23 08:19 RBC 3.80 10^6/uL (3.85-5.65) L 04/20/23 05:15 Hgb 11.80 g/dL (11.27-16.99) 04/20/23 05:15 Hct 36.9 % (36-47) 04/20/23 05:15 MCV 97.1 fl (85-98) 04/20/23 05:15 MCH 31.1 pg (27-33) 04/20/23 05:15 MCHC 32.0 g/dL (30-55) 04/20/23 05:15 RDW 12.3 % (12.1-15.1) 04/20/23 05:15 Plt Count 203 10^3/cmm (157-399) 04/20/23 05:15 MPV 10.6 fL (7.4-10.4) H 04/20/23 05:15 Gran % Cancelled 04/17/23 08:19 Neut % (Auto) 76.4 % 04/20/23 05:15 Lymph % (Auto) 13.0 % 04/20/23 05:15 [place] % (Auto) 7.4 % 04/20/23 05:15 Eos % (Auto) 2.3 % 04/20/23 05:15 Baso % (Auto) 0.5 % 04/20/23 05:15 Neut # (Auto) 8.55 10^3/uL (1.8-7.7) H 04/20/23 05:15 Lymph # (Auto) 1.5 10^3/uL (0.8-4.8) 04/20/23 05:15 [place] # (Auto) 0.8 10^3/uL (0.2-0.9) 04/20/23 05:15 Eos # (Auto) 0.3 10^3/uL (0.0-0.8) 04/20/23 05:15 Baso # (Auto) 0.1 10^3/uL (0.0-0.1) 04/20/23 05:15 Absolute Gran (auto) Cancelled 04/17/23 08:19 Nucleated RBC % (auto) 0 % 04/20/23 05:15 Nucleated RBCs # 0.0 /100WBC 04/20/23 05:15 Sodium 137 mmol/L (136-145) 04/19/23 10:35 Potassium 4.0 mmol/L (3.5-5.1) 04/19/23 10:35 Chloride 102 mmol/L (98-107) 04/19/23 10:35 Carbon Dioxide 27 mmol/L (22-29) 04/19/23 10:35 Anion Gap 12.0 (5-19) 04/19/23 10:35 BUN 7 mg/dL (8-23) L 04/19/23 10:35 Creatinine 0.6 mg/dL (0.5-0.9) 04/19/23 10:35 GFR Calculation Not Reportable 04/19/23 10:35 Glucose 94 mg/dL (65-115) 04/19/23 10:35 Estimat Average Glucose 123 04/18/23 05:20 Hemoglobin A1c 5.9 % (4.0-6.0) 04/18/23 05:20 Calculated Osmolality 282 mOsm/kg (285-295) L 04/19/23 10:35 Lactic Acid 2.3 mmol/L (0.5-2.2) H 04/17/23 15:39 Lactic Acid (Sepsis) 3.2 mmol/L (0.5-2.2) H 04/17/23 19:16 Calcium 8.3 mg/dL (8.5-10.5) L 04/19/23 10:35 Phosphorus 2.2 mg/dL (2.5-4.5) L 04/18/23 05:20 Magnesium 1.7 mg/dL (1.7-2.3) 04/18/23 05:20 Iron 19 ug/dL (37-145) L 04/17/23 14:07 TIBC 233 mcg/dl 04/17/23 14:07 % Saturation 8.1 % (20-50) L 04/17/23 14:07 Unsat Iron Binding 214 ug/dL (112-347) 04/17/23 14:07 Total Bilirubin 0.7 mg/dL (0.15-1.2) 04/18/23 05:20 AST 13 U/L (0-32) 04/18/23 05:20 ALT 8 U/L (0-33) 04/18/23 05:20 Alkaline Phosphatase 64 U/L (35-105) 04/18/23 05:20 Creatine Kinase 24 U/L (26-192) L 04/17/23 08:47 Troponin T Baseline 17 ng/L (0-10) H 04/17/23 08:47 Troponin T 120 Minute 14.64 ng/L (0-10) H 04/17/23 10:10 Delta Troponin T -2.36 ABS# (0-10) L 04/17/23 10:10 Troponin T Hi Sens 6Hr 16.94 ng/L (0-10) H 04/17/23 14:07 Troponin T Hi Sens 6Hr Delta -0.06 ng/L (0-12) L 04/17/23 14:07 Total Protein 5.5 g/dL (6.6-8.7) L 04/18/23 05:20 Albumin 3.2 g/dL (3.5-5.2) L 04/18/23 05:20 Globulin 2.3 g/dL (1.3-4.6) 04/18/23 05:20 Triglycerides 60 mg/dL (0-150) 04/18/23 05:20 Cholesterol 125 mg/dL (0-200) 04/18/23 05:20 LDL Cholesterol, Calc 49 mg/dL (50-129) L 04/18/23 05:20 HDL Cholesterol 64 mg/dL (60-100) 04/18/23 05:20 LDL/HDL Ratio 0.77 RATIO (0.00-3.22) 04/18/23 05:20 Cholesterol/HDL Ratio 1.95 mg/dL (0.0-4.40) 04/18/23 05:20 Vitamin B12 550 pg/mL (232-1245) 04/17/23 14:07 Folate 11.4 ng/mL (4.8-37.3) 04/18/23 05:20 Procalcitonin 0.29 ng/mL (0-0.5) 04/17/23 14:07 TSH 0.69 uIU/mL (0.27-4.20) 04/17/23 14:07 Vitals Last Vital Signs Temp 97.6 F 04/20/23 07:23 Pulse 83 04/20/23 07:51 Resp 18 04/20/23 07:23 BP 129/74 04/20/23 07:23 Pulse Ox 94 04/20/23 07:51 O2 Del Method Room Air 04/20/23 07:51 O2 Flow Rate 2 04/17/23 08:15 Discharge Plan Discharge Patient Disposition: Home Condition: Stable Prescriptions: New ciprofloxacin HCl [Cipro] 500 mg tablet 500 mg PO Q12H Qty: 20 0RF metronidazole 500 mg tablet 500 mg PO Q8H Qty: 30 0RF Continued aspirin 81 mg tablet,delayed release (DR/EC) 81 mg PO DAILY Ventolin HFA 90 mcg/actuation HFA aerosol inhaler 1 puff INHALATION Q6H PRN (Reason: shortness of breath or wheezing) Qty: 18 4RF citalopram 20 mg tablet 20 mg PO DAILY Qty: 90 2RF cyclobenzaprine 10 mg tablet 10 mg PO BID PRN (Reason: muscle spasm) Qty: 180 2RF triamterene-hydrochlorothiazid 37.5-25 mg tablet 1 tab PO DAILY Qty: 30 3RF atorvastatin 10 mg tablet 10 mg PO DAILY lisinopril-hydrochlorothiazide 20-12.5 mg tablet 1 tab PO DAILY amlodipine 5 mg tablet 5 mg PO DAILY Discharge Orders: Discharge Order (Routine); Ordered 04/20/23 Ordered By: Selvin Knowles Referrals: Idania Campbell MD [Primary Care Provider] - Discharge Diet: Advance as tolerated Discharge Activity: Increase activity as tolerated Patient Instructions: Diverticulitis (DC), Diverticulosis (DC), Diverticulosis Diet (GEN) Activity Restrictions/Additional Instructions: F/U with PCP 1 week Discharge Attestations Time Spent in Discharge Care*: less than 30 min Quality Metrics Clinical Quality Measures [ No reported AMI, CVA or VTE this stay] Coding Level of Care Code Acute Code for [facility] Diagnoses Colitis K52.9 Leukocytosis D72.829 Hematochezia K92.1 COPD (chronic obstructive pulmonary disease) J44.9
--- NOTE | 2023-04-20 11:06 | PC.SOCIAL ---
IMM Update pg 2 of IMM updated and reviewed w/ patient. Copy provided and Copy dated, initialed and placed in chart.
--- NOTE | 2023-04-20 12:31 | PC.NURSE ---
Discussed discharge paperwork, new medications, continued medications and follow up appointments. Patient verbalized understanding.
== END 2023-04-20 13:10 | disposition home or self-care (01) | DRG 392 ==
LOC: ER 11:17 → MEDSURG 12:54
PROVIDERS: Admitting Provider Student in an Organized Health Care Education/Training Program; Emergency Provider Family Medicine; PCP Family Medicine; Visit Provider Internal Medicine
DX: K52.9 Noninfective gastroenteritis and colitis, unspecified (principal); N17.9 Acute kidney failure, unspecified; E87.1 Hypo-osmolality and hyponatremia; J44.9 Chronic obstructive pulmonary disease, unspecified; Z99.81 Dependence on supplemental oxygen; Z79.82 Long term (current) use of aspirin; I10 Essential (primary) hypertension; E78.5 Hyperlipidemia, unspecified; F41.9 Anxiety disorder, unspecified; M81.0 Age-related osteoporosis without current pathological fracture; Z96.642 Presence of left artificial hip joint; Z87.891 Personal history of nicotine dependence; E86.0 Dehydration
CPT/HCPCS: 36415; 74177; 80048; 80053; 80061; 82274; 82550; 82607; 82746; 83036; 83540; 83550; 83605; 83630; 83735; 84100; 84145; 84443; 84484; 85025; 86403; 87045; 87177; 87209; 87324; 87427; 87449; 87493; 93005; 94664; 96365; 96367; 99285; C9113; G0378; J0744; J2270; J2543; J3490; J7030; Q9967

== ENCOUNTER 2023-06-07 07:56 | Outpatient (CLI) | payer MEDICARE, OTHER, SELFPAY ==
--- NOTE | 2023-06-07 08:04 | XR_ITS ---
WS: [email or web address] THORACIC SPINE TECHNIQUE: AP and lateral views are performed. HISTORY: M54.9 - Dorsalgia, unspecified COMPARISON: None available. Marked increase in thoracic kyphosis. Advanced degenerative changes and disc base narrowing and osteo phytosis. No definite fractures are identified. Pedicles are difficult to visualize due to the osteop enia. Long RIGHT curvature thoracic spine. Atherosclerotic plaque in the aorta. IMPRESSION: Moderate increase in thoracic kyphosis with advanced degenerative changes in the disc spaces. No frac ture seen.
--- NOTE | 2023-06-07 08:04 | XR_ITS ---
WS: [email or web address] LUMBAR SPINE: 3 VIEWS TECHNIQUE: AP, lateral and L5-S1 spot. HISTORY: M54.9 - Dorsalgia, unspecified COMPARISON: 03/27/2012 Increase in lumbar lordosis. Osteopenia. No fractures. Mild disc space narrowing and desiccation. Fac et joint arthritis. Mild rotary scoliosis and curvature to the LEFT. Bilateral SI joint sclerosis and narrowing. Bilateral hip arthroplasties. IMPRESSION: 1. No acute lumbar spine fracture. 2. New mild LEFT rotary scoliosis lumbar spine. 3. Progression of facet joint arthritis and disc space narrowing since 2011.
== END 2023-06-07 07:57 | disposition home or self-care (01) ==
PROVIDERS: PCP Family Medicine; Visit Provider Family Medicine
DX: M40.204 Unspecified kyphosis, thoracic region (principal); M47.815 Spondylosis without myelopathy or radiculopathy, thoracolumbar region; M41.86 Other forms of scoliosis, lumbar region
CPT/HCPCS: 72072; 72100

== ENCOUNTER → 2023-11-10 09:49 | Outpatient (BNVA) | payer MEDICARE, OTHER, SELFPAY | PROVIDERS: PCP Family Medicine; Visit Provider Family Medicine | DX: Z00.00 Encounter for general adult medical examination without abnormal findings (principal); I10 Essential (primary) hypertension; E78.5 Hyperlipidemia, unspecified; E55.9 Vitamin D deficiency, unspecified | CPT/HCPCS: 80053; 80061; 84443; 85025 ==

== ENCOUNTER 2023-11-23 09:30 | Outpatient (CLI) | payer MEDICARE, OTHER, SELFPAY ==
--- NOTE | 2023-11-23 09:30 | MM_ITS ---
WS: [email or web address] BILATERAL SCREENING DIGITAL TOMOSYNTHESIS MAMMOGRAM WITH CAD HISTORY: Z12.39 - Encounter for other screening for malignant neop... COMPARISON: 07/27/2018, 07/01/2017 Bilateral CC and MLO views with tomosynthesis and synthetic mammography submitted. Computer aided det ection analyzed. Breast composition: The breasts are heterogeneously dense, which may obscure small masses. No suspici ous masses, microcalcifications or architectural distortion. Scattered asymmetries in the anterior br east. No mass or distortion. MM/[place] [id number] IMPRESSION: BI-RADS: 2-Benign FOLLOW UP: 1 Year Follow-up
== END 2023-11-23 09:31 | disposition home or self-care (01) ==
LOC: MOBLMAM 09:36
PROVIDERS: PCP Family Medicine; Visit Provider Family Medicine
DX: Z12.39 Encounter for other screening for malignant neoplasm of breast (principal); R92.333 Mammographic heterogeneous density, bilateral breasts
CPT/HCPCS: 77063; 77067

== ENCOUNTER → 2024-03-19 12:48 | Outpatient (BNVA) | payer MEDICARE, OTHER, SELFPAY | PROVIDERS: PCP Family Medicine; Visit Provider Family Medicine | DX: I10 Essential (primary) hypertension (principal); K52.9 Noninfective gastroenteritis and colitis, unspecified | CPT/HCPCS: 80053; 80061; 84443; 85025 ==

== ENCOUNTER → 2024-05-31 11:12 | Outpatient (BNVA) | payer MEDICARE, OTHER, SELFPAY | PROVIDERS: PCP Nurse Practitioner Family; Visit Provider Nurse Practitioner Family | DX: I10 Essential (primary) hypertension (principal); E87.1 Hypo-osmolality and hyponatremia | CPT/HCPCS: 80053 ==

== ENCOUNTER → 2024-11-20 13:49 | Outpatient (BNVA) | payer MEDICARE, OTHER, SELFPAY | PROVIDERS: PCP Nurse Practitioner Family; Visit Provider Nurse Practitioner Family | DX: I10 Essential (primary) hypertension (principal); E78.5 Hyperlipidemia, unspecified; E87.1 Hypo-osmolality and hyponatremia; J44.9 Chronic obstructive pulmonary disease, unspecified; M54.2 Cervicalgia; M54.6 Pain in thoracic spine; M40.209 Unspecified kyphosis, site unspecified | CPT/HCPCS: 80053; 80061; 84443; 85025 ==

== ENCOUNTER 2024-11-21 08:24 | Outpatient (CLI) | payer MEDICARE, OTHER, SELFPAY ==
--- NOTE | 2024-11-21 08:28 | XR_ITS ---
WS: [email or web address] Cervical spine, 3 views, 11/21/2024 Clinical Data: M54.2 - Cervicalgia Comparison: Cervical spine, 03/10/2011 Findings: No compression fractures are seen. There is no prevertebral soft tissue swelling. Minimal osteoarthritis of the vertebral bodies C4-C7 is seen. There is disc space narrowing at C6-C7. The odontoid is unremarkable. There are calcifications at the level of the carotid bifurcations. XR/XR cervical spine 3V* [id number] Impression: 1. Degenerative disc narrowing at C6-C7. 2. Osteoarthritis C4-C7.
--- NOTE | 2024-11-21 08:28 | XR_ITS ---
WS: [email or web address] Thoracic spine, 3 views, 11/21/2024 Clinical Data: M54.2 - Cervicalgia Comparison: Thoracic spine, 06/07/2023 Findings: There is a marked thoracic kyphosis and mild dextroscoliosis. There is osteoarthritis and disc narrowing at all levels. There is osteoporosis. The paravertebral regions show no abnormalities. XR/XR thoracic spine 3V* [id number] Impression: Chronic stable changes of the thoracic spine.
== END 2024-11-21 08:25 | disposition home or self-care (01) ==
LOC: RAD 08:27
PROVIDERS: PCP Nurse Practitioner Family; Visit Provider Nurse Practitioner Family
DX: M50.323 Other cervical disc degeneration at C6-C7 level (principal); M40.294 Other kyphosis, thoracic region; R93.7 Abnormal findings on diagnostic imaging of other parts of musculoskeletal system; M81.0 Age-related osteoporosis without current pathological fracture; I65.23 Occlusion and stenosis of bilateral carotid arteries; M47.894 Other spondylosis, thoracic region
CPT/HCPCS: 72040; 72072

== ENCOUNTER 2024-12-03 06:48 | Outpatient (CLI) | payer MEDICARE, OTHER, SELFPAY ==
--- NOTE | 2024-12-03 07:15 | MR_ITS ---
WS: [email or web address] MRI CERVICAL SPINE NONCONTRAST TECHNIQUE: Sagittal T1, T2 and STIR imaging. Axial T2, gradient, and fiesta imaging. CLINICAL INFORMATION: M54.2 - Cervicalgia COMPARISON: None. FINDINGS: Exaggeration of the normal cervical lordosis. Moderate spondylitic changes. C2-C3: Normal. C3-C4: Mild facet arthropathy. Mild bilateral bony foraminal narrowing. C4-C5: Moderate facet arthropathy. Slight LEFT facet synovitis. Mild to moderate bilateral bony foraminal narrowing. C5-C6: Disc osteophyte complex with endplate ridging. Moderate facet arthropathy. Mild to moderate LEFT bony foraminal narrowing. C6-C7: Moderate facet arthropathy. Disc osteophyte complex. Mild LEFT greater than RIGHT foraminal narrowing. C7-T1: Spinal canal and foramen are patent. Exaggeration of the normal cervical lordosis. Visualized brain stem structures: Normal. Prevertebral soft tissues: Normal. 10 mm RIGHT thyroid nodule MR/MR cervical spin wo con* [id number] IMPRESSION: 1. Exaggeration of the normal cervical lordosis. 2. No high-grade central canal stenosis. Cord signal is normal. 3. Mild to moderate bony foraminal narrowing worse at C4-5, LEFT C5-6. 4. Moderate LEFT C4-5 facet arthropathy with slight LEFT facet synovitis
== END 2024-12-03 06:49 | disposition home or self-care (01) ==
PROVIDERS: PCP Nurse Practitioner Family; Visit Provider Nurse Practitioner Family
DX: M47.812 Spondylosis without myelopathy or radiculopathy, cervical region (principal); M50.30 Other cervical disc degeneration, unspecified cervical region; R93.7 Abnormal findings on diagnostic imaging of other parts of musculoskeletal system; M48.02 Spinal stenosis, cervical region; M47.892 Other spondylosis, cervical region; M25.78 Osteophyte, vertebrae; E04.1 Nontoxic single thyroid nodule
CPT/HCPCS: 72141

== ENCOUNTER 2024-12-07 09:03 | Outpatient (CLI) | payer MEDICARE, OTHER, SELFPAY ==
--- NOTE | 2024-12-07 09:30 | MR_ITS ---
WS: [email or web address] MRI THORACIC SPINE WITHOUT CONTRAST TECHNIQUE: Sagittal T1, T2 and STIR imaging. Axial T2 imaging. Noncontrast imaging obtained. CLINICAL INFORMATION: M54.6 - Pain in thoracic spine COMPARISON: None. FINDINGS: Moderate thoracic kyphosis. No acute compression. No high-grade central canal narrowing. Cord signal is normal. Mild chronic anterior wedging in the midthoracic spine with anterior hypertrophic changes. Moderate facet arthropathy lower thoracic spine. Mild disc bulging T12-L1 with a small central protrusion. Mild LEFT foraminal narrowing. Normal caliber descending thoracic aorta. MR/MR thoracic spin wo con* [id number] IMPRESSION: 1. Thoracic curve with moderate thoracic kyphosis. 2. No acute compression fractures. 3. Cord signal is normal. 4. No significant central canal stenosis. 5. Moderate spondylitic changes thoracic spine. 6. Shallow central protrusion at T12-L1 with mild LEFT foraminal narrowing.
== END 2024-12-07 09:04 | disposition home or self-care (01) ==
PROVIDERS: PCP Nurse Practitioner Family; Visit Provider Nurse Practitioner Family
DX: M47.894 Other spondylosis, thoracic region (principal); M40.294 Other kyphosis, thoracic region; M48.04 Spinal stenosis, thoracic region; M43.8X4 Other specified deforming dorsopathies, thoracic region; M48.54XD Collapsed vertebra, not elsewhere classified, thoracic region, subsequent encounter for fracture with routine healing; M89.38 Hypertrophy of bone, other site; M51.25 Other intervertebral disc displacement, thoracolumbar region; M51.35 Other intervertebral disc degeneration, thoracolumbar region; M48.05 Spinal stenosis, thoracolumbar region
CPT/HCPCS: 72146

== ENCOUNTER 2024-12-12 11:20 | Outpatient (CLI) | payer MEDICARE, OTHER, SELFPAY ==
--- NOTE | 2024-12-12 11:20 | MM_ITS ---
WS: [email or web address] BILATERAL 3D TOMOSYNTHESIS DIGITAL SCREENING MAMMOGRAPHY WITH CAD CLINICAL INFORMATION: SCREENING HISTORY: Screening mammogram. No current complaints. COMPARISON: 2023 TECHNIQUE: Bilateral CC and MLO views. FINDINGS: The breasts are composed of heterogeneous fibroglandular density tissue, which can limit the detection of small underlying mass lesions. No suspicious mass, asymmetry, calcifications, or architectural distortion. No evidence of malignancy. MM/MM scr tomosynthesis [id number] IMPRESSION: DENSITY: The breasts are heterogeneously dense, which may obscure small masses. BI-RADS: 1 - Negative FOLLOW UP: 1 Year Follow-up Recommend return to annual screening mammography.
== END 2024-12-12 11:21 | disposition home or self-care (01) ==
LOC: MOBLMAM 11:21
PROVIDERS: PCP Nurse Practitioner Family; Visit Provider Nurse Practitioner Family
DX: Z12.31 Encounter for screening mammogram for malignant neoplasm of breast (principal)
CPT/HCPCS: 77063; 77067

== ENCOUNTER → 2024-12-13 08:20 | Outpatient (BNVA) | payer MEDICARE, OTHER, SELFPAY | PROVIDERS: PCP Nurse Practitioner Family; Visit Provider Orthopaedic Surgery | DX: M54.2 Cervicalgia (principal); M47.9 Spondylosis, unspecified; M54.12 Radiculopathy, cervical region | CPT/HCPCS: 72050; 72072; 99203 ==

== ENCOUNTER 2024-12-25 05:00 | Outpatient (RCR) | payer MEDICARE, OTHER, SELFPAY | END 2025-01-24 23:59 | disposition home or self-care (01) | LOC: TPT 05:00 | PROVIDERS: PCP Nurse Practitioner Family; Visit Provider Orthopaedic Surgery | DX: M54.2 Cervicalgia (principal); G89.29 Other chronic pain | CPT/HCPCS: 97110; 97161 ==

== ENCOUNTER 2025-01-03 12:07 | Emergency (ER) | payer MEDICARE, OTHER, SELFPAY ==
[2025-01-03 12:10] VITALS: BP 77/41; PULSE 75; RESP 16; O2SAT 88
--- NOTE | 2025-01-03 12:11 | CT_ITS ---
WS: [email or web address] Exam: CT pelvis wo con [id number] Date/Time of Exam: 01/03/2025 12:22 PM Reason For Exam: traumatic pelvic pain DLP: 309.[address] scans at [facility] use at least one of these dose optimization techniques: automated exposure control; mA and/or kV adjustment per patient size (includes targeted exams where dose is matched to clinical indication); or iterative reconstruction. There is a comminuted fracture of the proximal RIGHT femur in the region of the femoral component of a total hip replacement. Minimal displacement of fragments. No acute pelvic fracture is seen. Old fractures of the RIGHT inferior and superior pubic ramus noted. Left-sided total hip replacement is also noted and appears to be intact. Images of the pelvis show marked stool retention in the large bowel. Sigmoid diverticulosis. Soft tissues are unremarkable. CT/CT pelvis wo con [id number] IMPRESSION: 1. Comminuted fracture of the proximal RIGHT femur without significant displace ment of fracture fragments. This has occurred in the region of the femoral comp onent of the RIGHT total hip replacement. 2. No other acute fractures were identified. Additional findings as noted above .
--- NOTE | 2025-01-03 12:11 | CT_ITS ---
WS: [email or web address] Exam: CT head wo con* [id number] Date/Time of Exam: 01/03/2025 12:22 PM Reason For Exam: fall, head injury DLP: 1065.[address] scans at [facility] use at least one of these dose optimization techniques: automated exposure control; mA and/or kV adjustment per patient size (includes targeted exams where dose is matched to clinical indication); or iterative reconstruction. No sign of acute intracranial bleed or space-occupying mass. No extra-axial fluid collections. Lateral ventricles are normal in size. The skull is intact. The facial sinuses and mastoids are clear. Mild diffuse atrophy and microvascular ischemic change. CT/CT head wo con* [id number] IMPRESSION: 1. No acute intracranial finding.
--- NOTE | 2025-01-03 12:11 | XR_ITS ---
WS: [email or web address] Exam: XR hip RT 2-3V wo/w pel* [id number] Date/Time of Exam: 01/03/2025 12:11 PM Reason For Exam: hip pain There is a nondisplaced fracture involving the lateral proximal femur to include the greater trochanter. A total hip replacement is in place in satisfactory position. No obvious hardware complication is seen. Normal soft tissues. Old healed superior and inferior RIGHT pubic rami fractures noted. XR/XR hip RT 2-3V wo/w pel* [id number] IMPRESSION: 1. Nondisplaced fractures of the proximal lateral femur to include the greater trochanter. 2. RIGHT total hip replacement remains intact without obvious complication.
--- NOTE | 2025-01-03 12:34 | ECG_ITS ---
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 Measurements Intervals [place] Rate: 75 P: 65 RI: 165 QRS: 82 QRSD: 141 T: 47 QT: 417 QTc: 468 Interpretive Statements SINUS RHYTHM INTRAVENTRICULAR CONDUCTION DELAY [130+ ms QRS DURATION] Compared to ECG 04/17/2023 15:30:39 Intraventricular conduction delay now present Sinus tachycardia no longer present Right bundle-branch block no longer present Electronically Signed On 01-04-2025 15:21:08 CDT by Miguel Richardson M.D. [email or web address]
[2025-01-03 12:44] VITALS: BP 97/55; PULSE 71; O2SAT 92
--- NOTE | 2025-01-03 12:53 | ED_ITS ---
HPI - Fall 2 General: Chief Complaint: Fall Stated Complaint: fall - right hip pain Time Seen by Provider: 01/03/25 12:09 History of Present Illness: 79-year-old female with history of cervi natalee radiculopathy, hip replacement and [place] by Dr. Howard about 6 to 7 years ago, hypertension, hyperlipidemia who presents to the emergency room after a fall. She hit her head on her car. She is not on any anticoagulation. No loss of consciousness. No altered mental status. No focal motor deficits. Her main complaint is pain in her right lateral hip area. No shortening or rotation. Neurovascularly intact. No other injuries other than some mild skin abrasions on the right arm. Related Data Home Medications ?Medication ?Instructions ?Recorded ?Confirmed aspirin 81 mg tablet,delayed 81 mg PO DAILY 08/01/19 0 12/13/24 release Previous Rx's ?Medication ?Instructions ?Recorded albuterol sulfate 90 mcg/actuation 1 puff inhalation Q 6H PRN 11/20/24 aerosol inhaler (Ventolin HFA) shortness of breath or wheezing #18 grams amlodipine 5 mg tablet 5 mg PO DAILY #90 tabs 11/20 atorvastatin 10 mg tablet See Rx Instructions .Route 0 11/20/24 .COMPLEX #90 tabs budesonide-formoterol HFA 160 1 puff inhalation BID #1 0.2 grams 11/20/24 mcg-4.5 mcg/actuation aerosol inhaler (Symbicort) celecoxib 200 mg capsule See Rx Instructions .Route 0 11/20/24 .COMPLEX #180 caps citalopram 20 mg tablet 20 mg PO DAILY #90 tabs 10/26 01/18 cyclobenzaprine 10 mg tablet 10 mg PO BID PRN muscle s pasm #180 11/20/24 tabs lisinopril 20 1 tab PO DAILY #90 tabs 10/26 01/18 mg-hydrochlorothiazide 12.5 mg tablet sodium chloride 1,000 mg soluble 1,000 mg PO DAILY #90 tabs 11/20/24 tablet gabapentin 300 mg capsule 300 mg PO BID #60 caps 12/04 hydrocodone 5 mg-acetaminophen 325 1 tab PO BID PRN pa in 1 day #2 tabs 12/06/24 mg tablet prednisone 20 mg tablet 20 mg PO DAILY #15 tabs 11/25 03/21 hydrocodone 5 mg-acetaminophen 325 1 tab PO Q6H PRN pa in #30 tabs 01/03/25 mg tablet polyethylene glycol 3350 17 17 g PO DAILY #510 grams 0 01/03/25 gram/dose oral powder (Miralax) Allergies Allergy/AdvReac Type Severity Reaction Status Date / Time codeine Allergy Mild ADR-Nausea Verified 12/04/24 09:09 Sulfa (Sulfonamide Allergy Mild ADR-Nausea Verified 12/04/24 09:09 Antibiotics) Review of Systems 2 Narrative: Constitutional symptoms: Negative except as documented in HPI. Skin symptoms: Negative except as documented in HPI. Eye symptoms: Negative except as documented in HPI. ENMT symptoms: Negative except as documented in HPI. Respiratory symptoms: Negative except as documented in HPI. Cardiovascular symptoms: Negative except as documented in HPI. Gastrointestinal symptoms: Negative except as documented in HPI. Genitourinary symptoms: Negative except as documented in HPI. Musculoskeletal symptoms: Negative except as documented in HPI. Neurologic symptoms: Negative except as documented in HPI. Psychiatric symptoms: Negative except as documented in HPI. Endocrine symptoms: Negative except as documented in HPI. PFSH ED 2 PFSH: Medical History (Updated 01/03/25 @ 13:16 by Monica Elliott MD) Osteoarthritis of spine COPD (chronic obstructive pulmonary disease) Enrolled in chronic care management Osteoporosis Hyperlipidemia Statin intolerance Anxiety Hypertension Vitamin D deficiency Surgical History Hx of hysterectomy History of bilateral cataract extraction (~2013) History of total left hip replacement (~2011) Family History Brother Heart disease Mother Heart disease Social History Smoking and tobacco/nicotine status: current every day tobacco/nicotine user Quit status (tobacco/nicotine): has quit using Year quit tobacco: 2021 Former quit date comment: 1.5ppd x 60 year Hx Alcohol intake: current Alcohol intake frequency: 0-2 Drinks per Day Substance/Drug Use: never Caregiver/support person: Yes Lives independently: Yes Household members: friend(s) Housing: House Marital status: / Current occupational status: retired Current gender identity: Female Physical Exam 2 Narrative: EXAM NARRATIVE: General: Alert, no acute distress. Skin: Warm, dry. Head: Normocephalic, atraumatic. Neck: Supple, trachea midline. Eye: Extraocular movements are intact. Ears, nose, mouth and throat: mucosa moist. Cardiovascular: Regular, Normal peripheral perfusion. Respiratory: Lungs are clear to auscultation, respirations are non-labored, breath sounds are equal, Symmetrical chest wall expansion. Gastrointestinal: Soft, Nontender, Non distended Musculoskeletal: No obvious shortening or rotation of the right leg. She does have pain in the right lateral hip area. This is with movement and with palpation. Neurovascular intact. Neurological: Alert and oriented, No focal neurological deficit observed. Psychiatric: Cooperative, appropriate mood & affect. Course 2 Vital Signs: Vital signs: Vital Signs Pulse Rate 76 01/03/25 13:31 Respiratory Rate 16 01/03/25 12:10 Blood Pressure 123/69 01/03/25 13:31 Pulse Oximetry 92 01/03/25 13:31 Oxygen Delivery Me thod Room Air 01/03/25 13:31 MDM - Fall Medical Decision Making Medical decision making: Differential diagnosis including but not limited to and based on the above HPI, review of systems and physical exam: patient with fall and head injury. Subdural hematoma, subarachnoid hemorrhage, concussion, skull fracture. Orders placed to evaluate differential diagnosis based on the above differential, HPI and physical exam CT scan of the head was ordered. Also evaluate the right hip with a CT and x-ray. Patient also was slightly hypotensive on presentation so basic lab work has been ordered. CT head: No acute intracranial process. no intracranial hemorrhage, no evidence of infarct. no evidence of acute fracture.This was reviewed and interpreted by myself the ER physician. X-ray of the right hip and pelvis: Nondisplaced fractures of the proximal lateral femur to include the greater trochanter. Right total hip replacement remains intact without obvious complication. This was reviewed and interpreted by myself the emergency room physician. I also reviewed the radiology report. I reviewed the patient's medical record. Lab review: I reviewed interpreted labs personally. No leukocytosis. No anemia. No renal failure. Blood pressure responded to fluids. I think low blood pressure was secondary to pain meds received on the ambulance. CT of the pelvis: Comminuted fracture of the proximal right femur without significant displacement of fracture fragments. This occurred in the region of the femoral component of the right total hip replacement. No other fractures. No dislocation. This was reviewed and interpreted by myself the emergency room physician. I also reviewed the radiology report. Consultation: I spoke with Dr. Cain who reviewed the films and recommends limited abduction of the leg. Follow-up in clinic. Likely nonsurgical. Reexamination: Patient's pain has improved some with pain meds. Blood pressure improved with fluids. We discussed if she cannot walk she may need to come into go to a correction for rehab. She was try to go home for now. She has good social support at home right now. Assessment and plan: Periprosthetic hip fracture ?[place] in the emergency room. IV fluids in the emergency room. - Discharged home - Discussed plan with patient. Answered any questions. - Evaluation and treatment of this problem were appropriate in the emergency setting. Lab Data 01/03/25 12:57 01/03/25 12:[address] 01/03/25 12:11 IMPRESSION: 1. No acute intracranial finding. Hip/Pelvis X-Ray 01/03/25 12:11 IMPRESSION: 1. Nondisplaced fractures of the proximal lateral femur to include the greater trochanter. 2. RIGHT total hip replacement remains intact without obvious complication. Pelvis CT 01/03/25 12:11 IMPRESSION: 1. Comminuted fracture of the proximal RIGHT femur without significant displacement of fracture fragments. This has occurred in the region of the femoral component of the RIGHT total hip replacement. 2. No other acute fractures were identified. Additional findings as noted above. Laboratory Results WBC 7.66 10^3/uL (3.29-11.43) 01/03/25 12:57 RBC 3.56 10^6/uL (3.85-5.65) L 01/03/25 12:57 Hgb 11.70 g/dL (11.27-16.99) 01/03/25 12:57 Hct 34.4 % (36-47) L 01/03/25 12:57 MCV 96.6 fl (85-98) 01/03/25 12:57 MCH 32.9 pg (27-33) 01/03/25 12:57 MCHC 34.0 g/dL (30-55) 01/03/25 12:57 RDW 13.1 % (12.1-15.1) 01/03/25 12:57 Plt Count 208 10^3/cmm (157-399) 01/03/25 12:57 MPV 9.3 fL (7.4-10.4) 01/03/25 12:57 Neut % (Auto) 76.2 % 01/03/25 12:57 Lymph % (Auto) 13.7 % 01/03/25 12:57 [place] % (Auto) 8.0 % 01/03/25 12:57 Eos % (Auto) 1.2 % 01/03/25 12:57 Baso % (Auto) 0.5 % 01/03/25 12:57 Neut # (Auto) 5.84 10^3/uL (1.8-7.7) 01/03/25 12:57 Lymph # (Auto) 1.1 10^3/uL (0.8-4.8) 01/03/25 12:57 [place] # (Auto) 0.6 10^3/uL (0.2-0.9) 01/03/25 12:57 Eos # (Auto) 0.1 10^3/uL (0.0-0.8) 01/03/25 12:57 Baso # (Auto) 0.0 10^3/uL (0.0-0.1) 01/03/25 12:57 Nucleated RBC % (auto) 0 % 01/03/25 12:57 Nucleated RBCs # 0.0 /100WBC 01/03/25 12:57 PT 13.20 SECONDS (12.1-14.9) 01/03/25 12:57 INR 0.93 (0.8-1.2) 01/03/25 12:57 APTT 25.8 SECONDS (23.9-36.7) 01/03/25 12:57 Sodium 131 mmol/L (136-145) L 01/03/25 12:57 Potassium 4.1 mmol/L (3.5-5.1) 01/03/25 12:57 Chloride 96 mmol/L (98-107) L 01/03/25 12:57 Carbon Dioxide 27 mmol/L (22-29) 01/03/25 12:57 Anion Gap 12.1 (5-19) 01/03/25 12:57 BUN 14 mg/dL (8-23) 01/03/25 12:57 Creatinine 0.7 mg/dL (0.5-0.9) 01/03/25 12:57 GFR Calculation Not Reportable 01/03/25 12:57 Glucose 91 mg/dL (65-115) 01/03/25 12:57 Calculated Osmolality 272 mOsm/kg (285-295) L 01/03/25 12:57 Lactic Acid 0.8 mmol/L (0.5-2.2) 01/03/25 12:57 Calcium 8.8 mg/dL (8.5-10.5) 01/03/25 12:57 Total Bilirubin 0.4 mg/dL (0.15-1.2) 01/03/25 12:57 AST 14 U/L (0-32) 01/03/25 12:57 ALT 12 U/L (0-33) 01/03/25 12:57 Alkaline Phosphatase 48 U/L (35-105) 01/03/25 12:57 Total Protein 5.4 g/dL (6.6-8.7) L 01/03/25 12:57 Albumin 3.5 g/dL (3.5-5.2) 01/03/25 12:57 Globulin 1.9 g/dL (1.3-4.6) 01/03/25 12:57 All radiology interpretation(s) finalized by discharge Discharge Plan Discharge Patient Disposition: Home Clinical Impression: Oanh-prosthetic fracture around prosthetic hip, Fall, Head injury, Hypotension, Dehydration Condition: Stable Prescriptions: New hydrocodone-acetaminophen 5-325 mg tablet 1 tab PO Q6H PRN (Reason: pain) Qty: 30 0RF polyethylene glycol 3350 [Miralax] 17 gram/dose powder 17 g PO DAILY Qty: 510 0RF Rx Instructions: Take 1 scoop daily while taking pain medications. No Action aspirin 81 mg tablet,delayed release (DR/EC) 81 mg PO DAILY sodium chloride 1,000 mg tablet,soluble 1,000 mg PO DAILY Qty: 90 3RF cyclobenzaprine 10 mg tablet 10 mg PO BID PRN (Reason: muscle spasm) Qty: 180 2RF citalopram 20 mg tablet 20 mg PO DAILY Qty: 90 2RF celecoxib 200 mg capsule See Rx Instructions .ROUTE .COMPLEX Qty: 180 2RF Dose Instruction: Take 1 capsule by mouth twice daily Rx Instructions: Take 1 capsule by mouth twice daily budesonide-formoterol [Symbicort] 160-4.5 mcg/actuation HFA aerosol inhaler 1 puff inhalation BID Qty: 10.2 6RF atorvastatin 10 mg tablet See Rx Instructions .ROUTE .COMPLEX Qty: 90 3RF Dose Instruction: Take 1 tablet by mouth once daily Rx Instructions: Take 1 tablet by mouth once daily amlodipine 5 mg tablet 5 mg PO DAILY Qty: 90 3RF Ventolin HFA 90 mcg/actuation HFA aerosol inhaler 1 puff INHALATION Q6H PRN (Reason: shortness of breath or wheezing) Qty: 18 4RF lisinopril-hydrochlorothiazide 20-12.5 mg tablet 1 tab PO DAILY Qty: 90 2RF gabapentin 300 mg capsule 300 mg PO BID Qty: 60 2RF Rx Instructions: start once daily dosing, may increase to BID dosing after 3 days prednisone 20 mg tablet 20 mg PO DAILY Qty: 15 0RF Rx Instructions: 60mg for three days, 40mg for two days, 20mg for two days. hydrocodone-acetaminophen 5-325 mg tablet 1 tab PO BID PRN (Reason: pain) 1 Days Qty: 2 0RF Discharge Orders: Discharge ED (Routine); Ordered 01/03/25 Ordered By: Monica Elliott Referrals: Ana Nguyen FNP-C [Primary Care Provider, Family Practice] Discharge Diet: Usual diet Discharge Activity: Limit activity as instructed Patient Instructions: Opioid Safety, Pain Management, Patient Portal & [place] Instructions Activity Restrictions/Additional Instructions: Please limit abduction (movement of leg away from the body to the right), bear weight as tolerated and call for an appointment with Dr. Cain for follow-up. Thank you for choosing [facility] for your healthcare needs today. You have been screened and evaluated and felt safe for discharge. Health conditions do change or evolve sometimes and as such it is important that you follow up with your Primary Doctor to be re checked, 3-5 days is a general good time frame for follow up. You are always welcome to return to the ED for re assessment if your symptoms are worsening or you have new concerns Print Language: Albanian Coding Level of Care Code ED Resident Care Aide for Reinier Dexter
[2025-01-03 13:13] LABS: Hematocrit 34.4 % (36-47); Hemoglobin 11.70 g/dL (11.27-16.99); Mean Corpuscular HGB Conc 34.0 g/dL (30-55); Mean Corpuscular Hemoglobin 32.9 pg (27-33); Mean Corpuscular Volume 96.6 fl (85-98); Nucleated Red Blood Cells % 0 %; Platelet Count 208 10^3/cmm (157-399); Red Blood Count 3.56 10^6/uL (3.85-5.65); White Blood Count 7.66 10^3/uL (3.29-11.43)
[2025-01-03 13:25] LABS: INR 0.93 (0.8-1.2); Prothrombin Time 13.20 SECONDS (12.1-14.9)
[2025-01-03 13:26] LABS: Partial Thromboplastin Time 25.8 SECONDS (23.9-36.7)
[2025-01-03] MEDS: HYDROcodone-acetaminophen 10-325 mg Tablet 1 TAB PO (13:29)
[2025-01-03 13:31] VITALS: BP 123/69; PULSE 76; O2SAT 92
[2025-01-03 13:31] LABS: Lactic Sepsis W/Reflex 0.8 mmol/L (0.5-2.2)
[2025-01-03 13:33] LABS: Alanine Aminotransferase 12 U/L (0-33); Albumin Level 3.5 g/dL (3.5-5.2); Alkaline Phosphatase 48 U/L (35-105); Anion Gap 12.1 (5-19); Aspartate Amino Transferase 14 U/L (0-32); Blood Urea Nitrogen 14 mg/dL (8-23); Calcium 8.8 mg/dL (8.5-10.5); Carbon Dioxide 27 mmol/L (22-29); Chloride 96 mmol/L (98-107); Creatinine Clr Calc Pharmacy 50.7128; Globulin 1.9 g/dL (1.3-4.6); Glucose 91 mg/dL (65-115); Osmolality Calculated 272 mOsm/kg (285-295); Potassium 4.1 mmol/L (3.5-5.1); Sodium 131 mmol/L (136-145); Total Protein 5.4 g/dL (6.6-8.7)
[2025-01-03] MEDS: HYDROmorphone 0.5 MG/0.5 ML INJ 1 MG IVP (14:25)
--- NOTE | 2025-01-03 14:47 | DCPLANNER ---
messaged ortho for er f/u
[2025-01-03 15:30] VITALS: BP 104/63; PULSE 82; O2SAT 90
== END 2025-01-03 15:31 | disposition home or self-care (01) ==
PROVIDERS: Emergency Provider Emergency Medicine; PCP Nurse Practitioner Family
DX: M97.01XA Periprosthetic fracture around internal prosthetic right hip joint, initial encounter (principal); W19.XXXA Unspecified fall, initial encounter; S09.90XA Unspecified injury of head, initial encounter; I95.9 Hypotension, unspecified; E86.0 Dehydration; Z72.0 Tobacco use; J44.9 Chronic obstructive pulmonary disease, unspecified; E78.5 Hyperlipidemia, unspecified
CPT/HCPCS: 36415; 70450; 72192; 73502; 80053; 83605; 85025; 85610; 85730; 87040; 93005; 96361; 96374; 99285; J1171; J7030; J9999

== ENCOUNTER → 2025-01-10 15:25 | Outpatient (BNVA) | payer MEDICARE, OTHER, SELFPAY | PROVIDERS: PCP Nurse Practitioner Family; Visit Provider Orthopaedic Surgery | DX: S72.111A Displaced fracture of greater trochanter of right femur, initial encounter for closed fracture (principal); X58.XXXA Exposure to other specified factors, initial encounter | CPT/HCPCS: 73502; 99213 ==

== ENCOUNTER → 2025-01-16 11:16 | Outpatient (BNVA) | payer MEDICARE, OTHER, SELFPAY | PROVIDERS: PCP Nurse Practitioner Family; Visit Provider Nurse Practitioner Family | DX: M79.89 Other specified soft tissue disorders (principal); I10 Essential (primary) hypertension | CPT/HCPCS: 80053; 83880 ==

== ENCOUNTER → 2025-01-24 09:54 | Outpatient (BNVA) | payer MEDICARE, OTHER, SELFPAY | PROVIDERS: PCP Nurse Practitioner Family; Visit Provider Nurse Practitioner Family | DX: M79.89 Other specified soft tissue disorders (principal) | CPT/HCPCS: 80053 ==

== ENCOUNTER → 2025-01-31 10:28 | Outpatient (BNVA) | payer MEDICARE, OTHER, SELFPAY | PROVIDERS: PCP Nurse Practitioner Family; Visit Provider Orthopaedic Surgery | DX: S72.91XD Unspecified fracture of right femur, subsequent encounter for closed fracture with routine healing (principal); X58.XXXD Exposure to other specified factors, subsequent encounter | CPT/HCPCS: 73502; 99213 ==

== ENCOUNTER → 2025-02-06 12:46 | Outpatient (BNVA) | payer MEDICARE, OTHER, SELFPAY | PROVIDERS: PCP Nurse Practitioner Family; Visit Provider Nurse Practitioner Family | DX: M79.89 Other specified soft tissue disorders (principal) | CPT/HCPCS: 80053 ==

== ENCOUNTER 2025-02-13 07:40 | Outpatient (CLI) | payer MEDICARE, OTHER, SELFPAY ==
--- NOTE | 2025-02-13 07:45 | USCV_ITS ---
Addie Shultz Age: 79 Gender: F : 1945 Exam Date: 02/13/2025 08:08 Ordering Phys: Ana Nguyen RECREATION CLERK-Ivett Technologist: Exam Location: [facility] [place] Indication: cp sob BP: 110 / 60 HR: 94 Rhythm: Sinus Technical Quality: Adequate MEASUREMENTS (Male / Female) Normal Values 2D ECHO LV Diastolic Diameter PLAX 3.5 cm 4.2 - 5.9 / 3.9 - 5.3 cm IVS Diastolic Thickness 1.0 cm 0.6 - 1.0 / 0.6 - 0.9 cm IVS Systolic Thickness 1.2 cm LVPW Diastolic Thickness 1.6 cm 0.6 - 1.0 / 0.6 - 0.9 cm LVPW Systolic Thickness 1.2 cm LVOT Diameter 2.1 cm LV Ejection Fraction 2D Teich 65.8 % LV Ejection Fraction MOD 4C 61.0 % LV Ejection Fraction MOD 2C 67.7 % LV Ejection Fraction 2C AL 66.6 % LA Diameter 2.7 cm RA Systolic Volume 4C AL 23.2 ml RA Systolic Volume 4C MOD 22.4 ml LA Sys Volume AL 30.5 cm cubed LA Sys Volume Index AL 18.1 cm cubed/m squared Aorta at Sinotubular Diameter 2.8 cm IVC Diameter 1.5 cm M-MODE LA Ao Ratio MM 1.1 AV Cusp Separation MM 1.7 cm DOPPLER AV Peak Velocity 198.0 cm/s LVOT Peak Velocity 124.0 cm/s AV Area Cont Eq vti 2.9 cm squared AV Area Cont Eq pk 2.1 cm squared MV Peak Velocity 102.0 cm/s MV Area PHT 2.4 cm squared Mitral E to A Ratio 0.7 TV Peak Velocity 228.5 cm/s TR Peak Velocity 281.0 cm/s TR Peak Gradient 31.6 mmHg TV Peak E Velocity 84.0 cm/s PV Peak Velocity 143.0 cm/s FINDINGS Left Ventricle Normal left ventricular size, systolic function and wall thickness, with no regional wall motion abnormalities. Left ventricular ejection fraction is estimated at 60 %. Grade I/IV diastolic dysfunction (abnormal relaxation filling pattern), normal to mildly elevated filling pressures. Right Ventricle The right ventricle is normal in size and function. Right Atrium The right atrium is normal in size. Left Atrium The left atrium is normal in size. Mitral Valve Thickened mitral valve. No mitral valve stenosis. Trace mitral valve regurgitation. Aortic Valve Structurally normal aortic valve without significant sclerosis or stenosis. There is no aortic regurgitation. Tricuspid Valve Trace tricuspid valve regurgitation. Pulmonic Valve Structurally normal pulmonic valve without significant stenosis. There is no pulmonic regurgitation. Pericardium Normal pericardium without effusion. Aorta Normal ascending aorta dimension. IVC The inferior vena cava appears normal. CONCLUSIONS Normal left ventricular size, systolic function and wall thickness, with no regional wall motion abnormalities. Left ventricular ejection fraction is estimated at 60 %. Grade I/IV diastolic dysfunction (abnormal relaxation filling pattern), normal to mildly elevated filling pressures. There is no pericardial effusion. No significant valve abnormalities. Right atrial pressure is around 5 mm of mercury. Deepa Bustos MD (Electronically Signed) Final Date: 20 February 2025 20:12 S
== END 2025-02-13 07:41 | disposition home or self-care (01) ==
LOC: RAD 07:41
PROVIDERS: PCP Nurse Practitioner Family; Visit Provider Nurse Practitioner Family
DX: M79.89 Other specified soft tissue disorders (principal); R93.1 Abnormal findings on diagnostic imaging of heart and coronary circulation
CPT/HCPCS: 93306

== ENCOUNTER 2025-02-25 06:30 | Outpatient (RCR) | payer MEDICARE, OTHER, SELFPAY | END 2025-03-26 23:59 | disposition home or self-care (01) | LOC: TPT 06:30 | PROVIDERS: PCP Nurse Practitioner Family; Visit Provider Orthopaedic Surgery | DX: M54.9 Dorsalgia, unspecified (principal); G89.29 Other chronic pain | CPT/HCPCS: 97110; 97161; 97530 ==

== ENCOUNTER → 2025-02-28 10:34 | Outpatient (BNVA) | payer MEDICARE, OTHER, SELFPAY | PROVIDERS: PCP Nurse Practitioner Family; Visit Provider Orthopaedic Surgery | DX: S72.141D Displaced intertrochanteric fracture of right femur, subsequent encounter for closed fracture with routine healing (principal); X58.XXXD Exposure to other specified factors, subsequent encounter | CPT/HCPCS: 73502; 99213 ==

== ENCOUNTER → 2025-03-19 10:25 | Outpatient (BNVA) | payer MEDICARE, OTHER, SELFPAY | PROVIDERS: PCP Nurse Practitioner Family; Visit Provider Nurse Practitioner Family | DX: J44.9 Chronic obstructive pulmonary disease, unspecified (principal); E78.5 Hyperlipidemia, unspecified; I10 Essential (primary) hypertension; E55.9 Vitamin D deficiency, unspecified | CPT/HCPCS: 80053; 80061; 82306; 85025 ==

== ENCOUNTER → 2025-03-27 09:06 | Outpatient (BNVA) | payer MEDICARE, OTHER, SELFPAY | PROVIDERS: PCP Nurse Practitioner Family; Visit Provider Nurse Practitioner Family | DX: E55.9 Vitamin D deficiency, unspecified (principal); E67.3 Hypervitaminosis D | CPT/HCPCS: 82306 ==

== ENCOUNTER → 2025-04-09 14:50 | Outpatient (BNVA) | payer MEDICARE, OTHER, SELFPAY | PROVIDERS: PCP Nurse Practitioner Family; Visit Provider Orthopaedic Surgery | DX: M47.896 Other spondylosis, lumbar region (principal); M46.1 Sacroiliitis, not elsewhere classified | CPT/HCPCS: 72110 ==

== ENCOUNTER → 2025-04-11 14:40 | Outpatient (BNVA) | payer MEDICARE, OTHER, SELFPAY | PROVIDERS: PCP Nurse Practitioner Family; Visit Provider Nurse Practitioner Family | DX: E55.9 Vitamin D deficiency, unspecified (principal) | CPT/HCPCS: 82306 ==

== ENCOUNTER 2025-04-26 08:49 | Outpatient (RCR) | payer MEDICARE, OTHER, SELFPAY | END 2025-04-26 23:59 | disposition home or self-care (01) | LOC: TPT 08:49 | PROVIDERS: PCP Nurse Practitioner Family; Visit Provider Orthopaedic Surgery | DX: M54.50 Low back pain, unspecified (principal); G89.29 Other chronic pain | CPT/HCPCS: 97110; 97116; 97530; 99213 ==

== ENCOUNTER → 2025-05-21 08:05 | Outpatient (BNVA) | payer MEDICARE, OTHER, SELFPAY | PROVIDERS: PCP Nurse Practitioner Family; Visit Provider Nurse Practitioner Family | DX: E55.9 Vitamin D deficiency, unspecified (principal) | CPT/HCPCS: 80053; 82306 ==

== ENCOUNTER 2025-05-22 08:43 | Outpatient (RCR) | payer MEDICARE, OTHER, SELFPAY | END 2025-05-26 23:59 | disposition home or self-care (01) | LOC: TPT 08:43 | PROVIDERS: PCP Nurse Practitioner Family; Visit Provider Orthopaedic Surgery | DX: M54.9 Dorsalgia, unspecified (principal); G89.29 Other chronic pain | CPT/HCPCS: 97110; 97116; 97530 ==

== ENCOUNTER 2025-06-17 09:00 | Outpatient (RCR) | payer MEDICARE, OTHER, SELFPAY | END 2025-06-24 08:05 | disposition home or self-care (01) | LOC: TPT 09:00 | PROVIDERS: PCP Nurse Practitioner Family; Visit Provider Orthopaedic Surgery | DX: M54.9 Dorsalgia, unspecified (principal); G89.29 Other chronic pain | CPT/HCPCS: 97110; 97116; 97164; 97530 ==